=== PATIENT | female | born 1990 | race Caucasian/White ===

== ENCOUNTER 2020-02-04 09:42 | Emergency (ER) | payer SELFPAY ==
--- NOTE | 2020-02-04 10:09 | ED.URI ---
HPI - URI/Sore Throat General Chief Complaint: Upper Respiratory Symptoms Stated Complaint: FEVER VOMITING Time Seen by Provider: 02/04/20 09:45 Source: patient Mode of arrival: ambulatory Limitations: no limitations History of Present Illness HPI Narrative: 29yoF presenting to the ED c c/o Subjective fevers, chills, body aches, intermittent headaches, nausea/vomiting, loss of taste, nasal congestion, intermittent productive cough, diarrhea since yesterday. Denies recent travel or sick contacts. Works at [employer]. Denies any other symptoms complaints or concerns at this time. Related Data Allergies Allergy/AdvReac Type Severity Reaction Status Date / Time aspirin [ASA] Allergy Unknown HIVES Unverified 12/23/19 19:19 Review of Systems Review of Systems: Constitutional : + Fever, + Chills, No fatigue, No Malaise ENT/Mouth : No sore throat, + runny nose, + Loss of taste, No loss of smell Eyes: No Discharge Cardiovascular : No Chest Pain, No SOB Respiratory : + Cough, + Sputum, No Wheezing, No Smoke Exposure, No Dyspnea Gastrointestinal : + Nausea, + Vomiting, + Diarrhea Genitourinary : No irregular bleeding, No Dysuria, No Urinary Frequency, No Hematuria, No Urinary Incontinence, No Urgency, No Flank Pain, Musculoskeletal : No Myalgia Skin : No rash Neuro : + Headache Yes all other systems are reviewed and are negative [facility] Past Medical History Attestation statement: The following information was validated with the patient. Social History Social History Advance Directives: No Advance Directives Information Provided: No Physical Exam Vital Signs: Vital Signs: vital signs have been reviewed as normal and appeared to be correct. Blood pressure normal. Heart rate normal. Respiration rate normal. Temperature normal. Oxygen saturation normal. Appearance: Alert. Oriented X3. No acute distress. Head: Normal external exam. Normocephalic. Atraumatic. No Argueta signs noted. No raccoon eyes noted Eyes: PERRLA. EOMI. Conjunctiva and sclera normal. Eyelids normal. ENT: EAC normal. TM's Normal. Pharynx normal. Uvula midline. Moist mucous membranes. No trismus noted. No drooling noted. No muffled voice noted. Neck: Normal inspection. Neck supple. FROM. No adenopathy. Thyroid Normal. No meningeal signs. No neck mass noted. CVS: Normal heart rate and rhythm. Heart sound normal. No murmurs noted. Pulses normal throughout. Respiratory: No respiratory distress. Painless inspiration. Breath sounds normal. No wheezes/rales/rhonchi noted. Chest nontender. No accessory muscle usage noted or decreased air movement noted. Abdomen: Soft and nontender. Bowel sounds normal in all 4 quadrants. No distention noted. No organomegaly noted. No visible injury noted. Back: No CVA tenderness. Full range of motion noted. Skin: Skin warm and dry. Normal skin color. Normal skin turgor. No rashes/lesions/lacerations noted. Extremities: No lower extremity edema. Extremities exhibit normal range of motion. Extremities nontender. Neuro: Oriented X 3. No motor deficit. No sensory deficit. Reflexes normal. Course Course Course Narrative: Will test for COVID in [place] home with symptomatic treatment instructions to return if any new or worsening symptoms and to self isolate and to follow up her primary care provider. Patient understands agrees the plan.
[2020-02-04 10:13] VITALS: BP 110/72; PULSE 92; TEMP 36.6; O2SAT 99; BMI 32.1
== END 2020-02-04 10:54 | disposition home or self-care (01) ==
PROVIDERS: Physician Assistant Medical; Emergency Provider Emergency Medicine
DX: R50.9 Fever, unspecified (principal); M79.10 Myalgia, unspecified site; Z20.828 Contact with and (suspected) exposure to other viral communicable diseases
CPT/HCPCS: 99283; U0003

== ENCOUNTER 2020-03-13 17:57 | Emergency (ER) | payer SELFPAY ==
[2020-03-13 18:04] VITALS: BP 124/77; PULSE 100; RESP 16; TEMP 36.9; O2SAT 100; BMI 34.9
[2020-03-13 18:19] LABS: Glucose Urine UA NEG (NEG); Leukocyte Esterase Urine 1+ (NEG); Nitrite Urine POS (NEG); PH 6.5 (5.0-8.0); Specific Gravity - Urine 1.015 (1.005-1.025); Urine Blood 3+ (NEG); Urine Ketones NEG (NEG); Urine Protein 1+ MG/DL (NEG-TRACE)
[2020-03-13 18:20] LABS: Appearance Urine CLOUDY; Color Urine YELLOW
[2020-03-13 18:21] LABS: UPreg QC Valid YES; Urine Pregnancy NEGATIVE (NEGATIVE)
[2020-03-13 18:26] LABS: Bacteria Urine 2+ /LPF; RBC Urine 30-49 /HPF (0); Squamous Epithelial Cell Urine 1+ /LPF
--- NOTE | 2020-03-13 20:25 | CT_ITS ---
EXAMINATION: CT ABDOMEN AND PELVIS WITHOUT CONTRAST CLINICAL INFORMATION: Left flank pain. Dysuria. COMPARISON: CT abdomen pelvis 01/18/2019 TECHNIQUE: Multidetector volumetric imaging was performed from the superior aspect of the liver through the pubic symphysis. Sagittal and coronal reformatted images were obtained on the technologist's workstation. This CT examination was performed using dose optimization techniques as appropriate, variously including the following: *Automated exposure control *Adjustment of mA and/or kV according to patient size (this includes techniques or standardized protocols for targeted exams where dose is matched to indication/reason for exam; i.e. extremities or head) *Use of iterative reconstruction technique DLP: 683 mGy-cm FINDINGS: Visualized lung bases demonstrate mild dependent atelectasis. Stable 3 mm pulmonary nodule within the anterior right lung base. The liver demonstrates normal size, contour and attenuation. The gallbladder is decompressed but unremarkable. The pancreas, spleen and adrenal glands are unremarkable. The kidneys are symmetric in size. No renal calculi or hydronephrosis bilaterally. Debris-filled stomach. Normal caliber loops of small and large bowel. The appendix is surgically absent. The bladder is decompressed and therefore not accurately evaluated. Unremarkable CT appearance of the uterus. Small bilateral adnexal cysts are present. Trace amount of free pelvic fluid is likely physiologic. No inguinal lymphadenopathy. No acute osseous abnormality. CT/CT abdomen pelvis wo con IMPRESSION: No CT evidence for acute abnormality within the abdomen or pelvis. Specifically, no renal calculi or hydronephrosis bilaterally.
--- NOTE | 2020-03-13 20:25 | ED.ABDPAIN ---
HPI - Abdominal Pain General Chief Complaint: Abdominal Pain Stated Complaint: Flank Pain Time Seen by Provider: 03/13/20 20:13 Source: patient Mode of arrival: ambulatory Limitations: no limitations History of Present Illness HPI narrative: 29-year-old female with no significant past medical history presents with abdominal pain and left flank pain for the past several days Accompanied with subjective fevers and chills. States the pain is getting worse, and she is having difficulty urinating. She notices that her urine is dark appears to have blood in it. she is not sexually active at this time, denies chest pain pressure, palpitations, shortness of breath, abdominal distention, edema, dizziness and weakness. MD elicited complaint: abdominal pain Pertinent past history: none Onset (ago): day(s) Pain Consistency: constant Location: LLQ, L flank and suprapubic Severity: moderate Quality: aching and burning Radiation: none Migration to: no migration Exacerbating factors: other ( micturition) Relieving factors: nothing Associated symptoms: nausea, fever, chills, dysuria and hematuria Treatments prior to arrival: NSAIDs Related Data Previous Rx's Medication Instructions Recorded acetaminophen [Tylenol] 650 mg PO Q6H PRN #10 tab 02/04/20 azithromycin See Rx Instructions .ROUTE 02/04/20 .COMPLEX #6 tab cyclobenzaprine 10 mg PO TID PRN #10 tab 02/04/20 ondansetron HCl [Zofran] 4 mg PO Q6H PRN #10 tab 02/04/20 cephalexin [Keflex] 500 mg PO Q8H 7 Days #21 cap 03/13/20 phenazopyridine [Pyridium] 200 mg PO TID PRN #10 tab 03/13/20 Allergies Allergy/AdvReac Type Severity Reaction Status Date / Time aspirin [ASA] Allergy Unknown HIVES Unverified 12/23/19 19:19 Review of Systems Review of Systems Constitutional: subjective Fever, positive Chills ENT/Mouth: No sore throat Eyes: No Eye Pain, No Swelling, No Redness Cardiovascular: No Chest Pain, No SOB Respiratory: No Cough, No Sputum, No Wheezing Gastrointestinal: positive Nausea, no Vomiting, No Diarrhea, positive abdominal pain Genitourinary: positive Dysuria, positive urinary frequency, positive Hematuria, positive Flank Pain, positive hesitancy Musculoskeletal: No joint pain, No Myalgias Skin: No Skin Lesions, No rash Neuro: No Weakness, No Numbness, No Headache Psych: No Anxiety/Panic, No Depression Heme/Lymph: No Bruising, No Lymphadenopathy Endocrine: No Polyuria, No Polydipsia Yes all other systems are reviewed and are negative Physical Exam Vital Signs: Vital Signs: Last Vital Signs Temp 98.0 F 03/13/20 22:16 Pulse 83 03/13/20 22:16 Resp 16 03/13/20 22:16 BP 114/72 03/13/20 22:16 Pulse Ox 98 03/13/20 22:16 Body Mass Index 34.9 Appearance: Alert. Oriented X3. moderate distress. Eyes: Pupils equal, round and reactive to light. ENT: Pharynx normal. Neck: Normal inspection. Neck supple. CVS: Normal heart rate and rhythm. Pulses normal. Respiratory: No respiratory distress. Breath sounds normal. Abdomen: Soft and tender to left lower and suprapubic, positive CVA tenderness Skin: Skin warm and dry. Normal skin color. Normal skin turgor. Extremities: No lower extremity edema. Neuro: No motor deficit. No sensory deficit. Course Course Course Narrative: 29-year-old female with no significant past medical history presents with left flank and suprapubic pain. Physical exam shows tenderness to the left lower quadrant and CVA tenderness. She does have family history of kidney stones but has never had 1 herself. urine positive for bacteria, heme and nitrites. Initial vital signs have a heart rate of 100, we will follow SIRS criteria resuscitate with 1 L of fluid at this time and order CT scan of the abdomen and pelvis, lactic and cultures. CBC shows a white count of 12.8, no other indication of organ dysfunction. CT scan is negative for acute findings requiring emergent intervention. Patient lost IV access, was unable to receive the IV ceftriaxone, plan is to give p.o. Keflex. We will discharge the patient home with Keflex and Pyridium. Patient verbalized understanding of and agrees to plan of care to discharge home. MDM - Abdominal Pain Differential Diagnosis Differential diagnosis: Likely abdominal pain, calculus of kidney, diverticulitis, endometriosis, ovarian cyst and renal colic Differential diagnosis narrative:: UTI Medical Records Attestation: I reviewed the patient's medical records. Lab Data Attestation: I reviewed the patient's lab results. Result diagrams: 03/13/20 20:54 12/07/20 21:41 Labs: Lab Results 03/13/20 03/13/20 03/13/20 Range/Units 18:12 20:54 20:54 WBC 12.8 H (4.8-10.8) X10*3/uL RBC 4.40 (4.20-5.50) X10*6/uL Hgb 13.0 (12.0-16.0) g/dl Hct 38.3 (37-47) % MCV 87.0 (80-98) fL MCH 29.5 (27.0-33.0) pg MCHC 33.9 (31.0-35.0) g/dl RDW 12.4 (11.0-16.0) % Plt Count 427 H (160-400) X10*3/uL MPV 9.6 (9.4-12.3) fL Immature Gran % (Auto) 0.4 (0.0-0.4) % Neut % (Auto) 54.8 (45-73) % Lymph % (Auto) 36.1 (20-40) % [place] % (Auto) 5.5 (2-11) % Eos % (Auto) 2.4 (0-4) % Baso % (Auto) 0.8 (0-2) % Lymph # (Auto) 4.6 (1.2-4.9) X10*3/uL [place] # (Auto) 0.7 (0.1-1.2) X10*3/uL Eos # (Auto) 0.3 (0.0-0.4) X10*3/uL Baso # (Auto) 0.1 (0.0-0.2) X10*3/uL Abs Immat Gran (auto) 0.05 H (0.00-0.03) X10*3/uL Absolute Neuts (auto) 7.0 (2.0-8.3) X10*3/uL Absolute Nucleated RBC 0.000 (0.0-0.012) X10*3/uL Nucleated RBC % (auto) 0.0 (0.0-0.2) /100WBC Sodium Cancelled Potassium Cancelled Chloride Cancelled Carbon Dioxide Cancelled Anion Gap Cancelled BUN Cancelled Creatinine Cancelled Estim Creat Clear Calc Cancelled Estimated GFR Cancelled Random Glucose Cancelled Lactic Acid (0.5-2.0) mmol/L Calcium Cancelled Urine Color YELLOW Urine Appearance CLOUDY Urine pH 6.5 (5.0-8.0) Ur Specific [place] 1.015 (1.005-1.025) Urine Protein 1+ H (NEG-TRACE) MG/DL Urine Glucose (UA) NEG (NEG) MG/DL Urine Ketones NEG (NEG) MG/DL Urine Blood 3+ H (NEG) Urine Nitrite POS H (NEG) Ur Leukocyte Esterase 1+ H (NEG) Urine RBC 30-49 H (0) /HPF Urine WBC 1-4 (0-4) /HPF Ur Squamous Epith Cells 1+ /LPF Urine Bacteria 2+ /LPF Urine Test NEGATIVE (NEGATIVE) 03/13/20 03/13/20 Range/Units 20:54 21:41 WBC (4.8-10.8) X10*3/uL RBC (4.20-5.50) X10*6/uL Hgb (12.0-16.0) g/dl Hct (37-47) % MCV (80-98) fL MCH (27.0-33.0) pg MCHC (31.0-35.0) g/dl RDW (11.0-16.0) % Plt Count (160-400) X10*3/uL MPV (9.4-12.3) fL Immature Gran % (Auto) (0.0-0.4) % Neut % (Auto) (45-73) % Lymph % (Auto) (20-40) % [place] % (Auto) (2-11) % Eos % (Auto) (0-4) % Baso % (Auto) (0-2) % Lymph # (Auto) (1.2-4.9) X10*3/uL [place] # (Auto) (0.1-1.2) X10*3/uL Eos # (Auto) (0.0-0.4) X10*3/uL Baso # (Auto) (0.0-0.2) X10*3/uL Abs Immat Gran (auto) (0.00-0.03) X10*3/uL Absolute Neuts (auto) (2.0-8.3) X10*3/uL Absolute Nucleated RBC (0.0-0.012) X10*3/uL Nucleated RBC % (auto) (0.0-0.2) /100WBC Sodium 136 Potassium 3.6 Chloride 104 Carbon Dioxide 24 Anion Gap 12 BUN 12 Creatinine 0.68 Estim Creat Clear Calc 116.2 Estimated GFR > 60 Random Glucose 93 Lactic Acid 1.3 (0.5-2.0) mmol/L Calcium 8.8 Urine Color Urine Appearance Urine pH (5.0-8.0) Ur Specific [place] (1.005-1.025) Urine Protein (NEG-TRACE) MG/DL Urine Glucose (UA) (NEG) MG/DL Urine Ketones (NEG) MG/DL Urine Blood (NEG) Urine Nitrite (NEG) Ur Leukocyte Esterase (NEG) Urine RBC (0) /HPF Urine WBC (0-4) /HPF Ur Squamous Epith Cells /LPF Urine Bacteria /LPF Urine Test (NEGATIVE) Imaging Data CT scan - abdomen: Attestation: I personally reviewed and interpreted this imaging study as follows: Radiologist's impression: FINDINGS: Visualized lung bases demonstrate mild dependent atelectasis. Stable 3 mm pulmonary nodule within the anterior right lung base. The liver demonstrates normal size, contour and attenuation. The gallbladder is decompressed but unremarkable. The pancreas, spleen and adrenal glands are unremarkable. The kidneys are symmetric in size. No renal calculi or hydronephrosis bilaterally. Debris-filled stomach. Normal caliber loops of small and large bowel. The appendix is surgically absent. The bladder is decompressed and therefore not accurately evaluated. Unremarkable CT appearance of the uterus. Small bilateral adnexal cysts are present. Trace amount of free pelvic fluid is likely physiologic. No inguinal lymphadenopathy. No acute osseous abnormality. CT/CT abdomen pelvis wo con IMPRESSION: No CT evidence for acute abnormality within the abdomen or pelvis. Specifically, no renal calculi or hydronephrosis bilaterally. Discharge Plan Discharge Clinical Impression: UTI (urinary tract infection) Patient Disposition: Home, Self-Care Instructions: Urinary Tract Infection in Women (ED) Additional Instructions: you were above evaluated for abdominal and flank pain. Urinalysis indicates urinary tract infection. CT scan is negative for acute findings requiring emergent intervention. We prescribed Keflex. Please take this medication as directed and complete the entire course. This medication is an antibiotic. Please follow-up with primary care physician for repeat urinalysis once the Keflex has been completed to ensure that you no longer have blood in your urine. Thank you for choosing this emergency department for evaluation. Please follow-up with primary care physician as needed. Return to the emergency department for any new, concerning, or worsening symptoms. Prescriptions: New cephalexin [Keflex] 500 mg capsule 500 mg PO Q8H 7 Days Qty: 21 RF: 0 phenazopyridine [Pyridium] 200 mg tablet 200 mg PO TID PRN (Reason: pain) Qty: 10 RF: 0 No Action cyclobenzaprine 10 mg tablet 10 mg PO TID PRN (Reason: muscle spasm) Qty: 10 RF: 0 azithromycin 250 mg tablet See Rx Instructions .ROUTE .COMPLEX Qty: 6 RF: 0 acetaminophen [Tylenol] 325 mg tablet 650 mg PO Q6H PRN (Reason: fever or pain) Qty: 10 RF: 0 ondansetron HCl [Zofran] 4 mg tablet 4 mg PO Q6H PRN (Reason: nausea and vomiting) Qty: 10 RF: 0 Interventions: ED Discharge Assessment Last Done: 03/13/20 22:32 Discharge Date/Time: 03/13/20 22:34 [facility] Past Medical History Attestation statement: The following information was validated with the patient. Medical History No known health problems Surgical History History of appendectomy Social History Social History Alcohol intake: never Smoked in Last 30 Days: No Use of substances other than those prescribed or required for medical reasons: No Advance Directives: No Advance Directives Information Provided: Yes
--- NOTE | 2020-03-13 21:00 | PC.NURSE ---
PT EVALED . IV STARTED. LABS DRAWN. CT TAKEN. PT DENIES ANY ABD PAIN WHEN QUESTIONED. PAINFUL URINATION X 3 DAYS. WAITING RESULTS.
[2020-03-13 21:02] LABS: Basophils Absolute Auto 0.1 X10*3/uL (0.0-0.2); Basophils Percent Auto 0.8 % (0-2); Eosinophils Absolute Auto 0.3 X10*3/uL (0.0-0.4); Eosinophils Percent Auto 2.4 % (0-4); Hematocrit 38.3 % (37-47); Imm Gran Abs Auto 0.05 X10*3/uL (0.00-0.03); Imm Gran Pct Auto 0.4 % (0.0-0.4); Lymphocytes Absolute Auto 4.6 X10*3/uL (1.2-4.9); Lymphocytes Percent Auto 36.1 % (20-40); MANUAL DIFF FLAG NO; Mean Corpuscular HGB Conc 33.9 g/dl (31.0-35.0); Mean Corpuscular Hemoglobin 29.5 pg (27.0-33.0); Mean Platelet Volume 9.6 fL (9.4-12.3); Monocytes Absolute Auto 0.7 X10*3/uL (0.1-1.2); Monocytes Percent Auto 5.5 % (2-11); Neutrophils Percent Auto 54.8 % (45-73); Platelet Count 427 X10*3/uL (160-400); Red Cell Distribution Width 12.4 % (11.0-16.0); White Blood Count 12.8 X10*3/uL (4.8-10.8)
[2020-03-13 21:34] LABS: Lactic Acid 1.3 mmol/L (0.5-2.0)
[2020-03-13 22:16] VITALS: BP 114/72; PULSE 83; RESP 16; TEMP 36.7; O2SAT 98
[2020-03-13 22:18] LABS: Anion Gap 12 (12-20); Blood Urea Nitrogen 12 mg/dL (9-16); Calcium 8.8 mg/dL (8.4-10.2); Carbon Dioxide 24 mmol/L (22-29); Chloride 104 mmol/L (96-108); Creatinine Clr Calc Pharmacy 116.2; Estimated Glomerular Filt Rate > 60; Glucose Random 93 mg/dL (60-115); Potassium 3.6 mmol/l (3.3-5.1); Sodium 136 mmol/L (135-145)
[2020-03-13] MEDS: cephALEXin 500 MG CAPSULE PO (22:25)
== END 2020-03-13 22:34 | disposition home or self-care (01) ==
PROVIDERS: Nurse Practitioner Family; Emergency Provider Emergency Medicine
DX: N39.0 Urinary tract infection, site not specified (principal)
CPT/HCPCS: 36415; 74176; 80048; 81001; 81025; 83605; 85025; 87040; 87086; 87088; 87186; 96361; 96374; 99284

== ENCOUNTER 2020-04-06 15:10 | Emergency (ER) | payer SELFPAY ==
[2020-04-06 15:13] VITALS: BP 132/71; PULSE 89; RESP 16; TEMP 36.2; O2SAT 100; BMI 33.0
[2020-04-06 15:56] LABS: Glucose Urine UA NEG (NEG); Leukocyte Esterase Urine NEG (NEG); Nitrite Urine NEG (NEG); Specific Gravity - Urine >= 1.030 (1.005-1.025); Urine Blood 1+ (NEG); Urine Ketones NEG (NEG); Urine Protein NEG (NEG-TRACE)
[2020-04-06 15:57] LABS: Appearance Urine CLEAR; Color Urine YELLOW
[2020-04-06 15:58] LABS: UPreg QC Valid YES; Urine Pregnancy POSITIVE (NEGATIVE)
[2020-04-06 16:18] LABS: Squamous Epithelial Cell Urine 3+ /LPF; WBC Urine 0 /HPF (0-4)
--- NOTE | 2020-04-06 16:21 | US_ITS ---
EXAMINATION: ULTRASOUND OB TRANSVAGINAL CLINICAL INFORMATION: Cramping. COMPARISON: None TECHNIQUE: Transabdominal and transvaginal ultrasound the pelvis was performed FINDINGS: The uterus is anteverted reported with a small gestational sac visualized. There is no yolk sac, pole or motion. The mean sac diameter is 0.91 cm corresponding to 5 weeks and 4 days. The right ovary measures 3.6 x 2.1 x 2.2 cm and appears unremarkable. Small follicles are seen. Left ovary measures 5.7 x 4.8 x 4.5 cm. There is a complex cyst with septations measuring 3.9 x 3.7 x 3.7 cm, likely corpus luteal cyst. The second cyst on the other side of the complex cyst by septation measures 1.5 x 2.5 x 1.40 cm. There is no free fluid seen. US/US OB <= 14 weeks fetus IMPRESSION: There is a single intrauterine gestational sac without pole, yolk sac or motion corresponding to 5 weeks and 4 days. Recommend follow-up ultrasound in 2-3 weeks. Complex cyst and simple adjacent cyst in left ovary. There is no free fluid in the cul-de-sac.
--- NOTE | 2020-04-06 16:21 | US_ITS ---
EXAMINATION: ULTRASOUND OB TRANSVAGINAL CLINICAL INFORMATION: Cramping. COMPARISON: None TECHNIQUE: Transabdominal and transvaginal ultrasound the pelvis was performed FINDINGS: The uterus is anteverted reported with a small gestational sac visualized. There is no yolk sac, pole or motion. The mean sac diameter is 0.91 cm corresponding to 5 weeks and 4 days. The right ovary measures 3.6 x 2.1 x 2.2 cm and appears unremarkable. Small follicles are seen. Left ovary measures 5.7 x 4.8 x 4.5 cm. There is a complex cyst with septations measuring 3.9 x 3.7 x 3.7 cm, likely corpus luteal cyst. The second cyst on the other side of the complex cyst by septation measures 1.5 x 2.5 x 1.40 cm. There is no free fluid seen. US/US OB transvaginal IMPRESSION: There is a single intrauterine gestational sac without pole, yolk sac or motion corresponding to 5 weeks and 4 days. Recommend follow-up ultrasound in 2-3 weeks. Complex cyst and simple adjacent cyst in left ovary. There is no free fluid in the cul-de-sac.
--- NOTE | 2020-04-06 16:25 | ED_ITS ---
HPI - Abdominal Pain General Chief Complaint: Abdominal Pain Stated Complaint: lighheaded,nause,abd pain Time Seen by Provider: 04/06/20 16:16 Source: patient Mode of arrival: ambulatory Limitations: no limitations History of Present Illness HPI narrative: 29-year-old female previously healthy here with feeling nauseous, lower pelvic cramping and feeling lightheaded with position changes for the last few days. She tells me she is 1 week late for her menses. Her last menstrual cycle was 1126. She has never been before. She denies any vaginal bleeding, discharge, vomiting. She is seeking MD elicited complaint: abdominal pain (Pelvic cramping) Onset (ago): day(s) Pain Consistency: intermittent Location: pelvis Severity: mild Radiation: none Migration to: no migration Exacerbating factors: nothing Relieving factors: nothing Associated symptoms: nausea Related Data Previous Rx's Medication Instructions Recorded acetaminophen [Tylenol] 650 mg PO Q6H PRN #10 tab 02/04/20 azithromycin See Rx Instructions .ROUTE 02/04/20 .COMPLEX #6 tab cyclobenzaprine 10 mg PO TID PRN #10 tab 02/04/20 ondansetron HCl [Zofran] 4 mg PO Q6H PRN #10 tab 02/04/20 cephalexin [Keflex] 500 mg PO Q8H 7 Days #21 cap 03/13/20 phenazopyridine [Pyridium] 200 mg PO TID PRN #10 tab 03/13/20 prenat.vits,faiza,vlb-rzgh-zuzms 1 tab PO DAILY #30 tab NS 04/06/20 Allergies Allergy/AdvReac Type Severity Reaction Status Date / Time aspirin [ASA] Allergy Unknown HIVES Verified 04/06/20 15:17 Review of Systems Review of Systems Yes all other systems are reviewed and are negative Constitutional: Reports no additional constitutional complaints, Denies body ache(s), Denies chills, Denies fever(s), Denies headache(s) and Denies weakness Eyes: Reports no additional eye complaints and Denies change in vision Reports system reviewed and no additional complaints, except as documented, Reports dizziness, Denies headache(s), Denies nasal congestion, Denies nasal discharge and Denies neck pain Cardiovascular: Reports no additional cardiovascular complaints, Denies chest pain, Denies leg edema and Denies dyspnea Respiratory: Reports no additional respiratory complaints, Denies cough and Denies dyspnea Gastrointestinal: Reports no additional gastrointestinal complaints, Denies abdominal pain, Denies diarrhea, Reports nausea and Denies vomiting Genitourinary: Reports no additional female genitourinary complaints and Denies urinary incontinence Comments: Pelvic pain Musculoskeletal: Reports no additional musculoskeletal complaints, Denies back pain, Denies arthralgias, Denies joint swelling, Denies neck pain, Denies numbness and Denies tingling Skin/Breast: Reports system reviewed and no additional complaints, except as docu and Denies rash Reports system reviewed and no additional complaints, except as documented, Denies Abnormal speech present, Reports dizziness, Denies headache(s), Denies numbness, Denies tingling and Denies weakness Physical Exam Vital Signs: Vital Signs: Last Vital Signs Temp 98.3 F 04/06/20 16:50 Pulse 86 04/06/20 16:50 Resp 18 04/06/20 16:50 BP 123/74 04/06/20 16:50 Pulse Ox 100 04/06/20 16:50 Body Mass Index 33.0 Const: General: cooperative, healthy appearing, comfortable and no acute distress Orientation/consciousness: patient oriented x3 Limitations: no limitations HENMT: Head: Yes normal to inspection Ears: hearing grossly normal bilaterally General nose exam: Normal external nose present Face and sinus: Yes normal facial exam Mouth: Normal oral and palatal mucosa present Throat: Yes posterior oropharynx normal Eyes: General: appearance normal, both eyes and all related structures Pupils: Equal, round and reactive pupils present Neck: Neck: Yes normal visual inspection Chest: Chest palpation & inspection: normal inspection of the chest Resp: Effort & Inspection: normal respiratory effort Auscultation: clear to auscultation bilaterally Cardio: Rate: regular rate Rhythm: regular rhythm Peripheral pulses: Peripheral pulses 2+ throughout GI: Inspection: Yes normal to inspection Palpation (GI): Soft to palpation, Tenderness to palpation present (GI) (Mild bilateral lower pelvic discomfort on exam.) with no rebound tenderness and no guarding Auscultation: normal bowel sounds Back/Spine/Pelvis: Thoracic/Lumbar Spine: thoracic and lumbar spine normal to inspection Skin: General skin exam: no rashes or lesions noted Neuro: General: patient oriented x3, no focal motor deficits and normal sensation to monofilament Cranial nerves: Yes Equal, round and reactive pupils present Cognition (Neuro): normal cognition Speech: No Abnormal speech present Gait exam (Neuro): Normal gait present Motor exam (neuro): 5/5 motor strength present throughout Extrem: General: Yes normal to inspection Course Course Course Narrative: 29-year-old female here with complaints of feeling lightheaded, nausea and late menses with bilateral lower cramping. Urine positive here. UA unremarkable. Will need labs including beta quant, Rh, ultrasound. 1814-ultrasound shows a single intrauterine gestational sac without pole, yolk sac or motion corresponding to 5 weeks and 4/7 days. Likely too early gestation. No vaginal bleeding with sufficient quant. Discussed findings with the patient. She was given a copy of her ultrasound report. Recommended following up outpatient with OB. Reviewed worrisome signs and symptoms and when to return to the emergency department. Comfortable discharge home. MDM - Abdominal Pain Medical Records Attestation: I reviewed the patient's medical records. Lab Data Attestation: I reviewed the patient's lab results. Result diagrams: 04/06/20 17:02 04/06/20 17:02 Labs: Lab Results 04/06/20 04/06/20 04/06/20 Range/Units 15:48 15:48 17:02 WBC 10.6 (4.8-10.8) X10*3/uL RBC 3.90 L (4.20-5.50) X10*6/uL Hgb 11.4 L (12.0-16.0) g/dl Hct 34.3 L (37-47) % MCV 87.9 (80-98) fL MCH 29.2 (27.0-33.0) pg MCHC 33.2 (31.0-35.0) g/dl RDW 13.2 (11.0-16.0) % Plt Count 323 (160-400) X10*3/uL MPV 9.3 L (9.4-12.3) fL Immature Gran % (Auto) 0.5 H (0.0-0.4) % Neut % (Auto) 53.5 (45-73) % Lymph % (Auto) 38.3 (20-40) % [place] % (Auto) 5.3 (2-11) % Eos % (Auto) 1.7 (0-4) % Baso % (Auto) 0.7 (0-2) % Lymph # (Auto) 4.1 (1.2-4.9) X10*3/uL [place] # (Auto) 0.6 (0.1-1.2) X10*3/uL Eos # (Auto) 0.2 (0.0-0.4) X10*3/uL Baso # (Auto) 0.1 (0.0-0.2) X10*3/uL Abs Immat Gran (auto) 0.05 H (0.00-0.03) X10*3/uL Absolute Neuts (auto) 5.7 (2.0-8.3) X10*3/uL Absolute Nucleated RBC 0.000 (0.0-0.012) X10*3/uL Nucleated RBC % (auto) 0.0 (0.0-0.2) /100WBC Sodium (135-145) mmol/L Potassium (3.3-5.1) mmol/l Chloride (96-108) mmol/L Carbon Dioxide (22-29) mmol/L Anion Gap (12-20) BUN (9-16) mg/dL Creatinine (0.5-1.4) mg/dL Estim Creat Clear Calc Estimated GFR Random Glucose (60-115) mg/dL Calcium (8.4-10.2) mg/dL Beta HCG, Quant mIU/mL Urine Color YELLOW Urine Appearance CLEAR Urine pH 6.0 (5.0-8.0) Ur Specific [place] >= 1.030 H (1.005-1.025) Urine Protein NEG (NEG-TRACE) MG/DL Urine Glucose (UA) NEG (NEG) MG/DL Urine Ketones NEG (NEG) MG/DL Urine Blood 1+ H (NEG) Urine Nitrite NEG (NEG) Ur Leukocyte Esterase NEG (NEG) Urine RBC 1-4 (0) /HPF Urine WBC 0 (0-4) /HPF Ur Squamous Epith Cells 3+ /LPF Urine Bacteria NONE /LPF Urine Test POSITIVE H (NEGATIVE) Blood Type 04/06/20 04/06/20 Range/Units 17:02 17:02 WBC (4.8-10.8) X10*3/uL RBC (4.20-5.50) X10*6/uL Hgb (12.0-16.0) g/dl Hct (37-47) % MCV (80-98) fL MCH (27.0-33.0) pg MCHC (31.0-35.0) g/dl RDW (11.0-16.0) % Plt Count (160-400) X10*3/uL MPV (9.4-12.3) fL Immature Gran % (Auto) (0.0-0.4) % Neut % (Auto) (45-73) % Lymph % (Auto) (20-40) % [place] % (Auto) (2-11) % Eos % (Auto) (0-4) % Baso % (Auto) (0-2) % Lymph # (Auto) (1.2-4.9) X10*3/uL [place] # (Auto) (0.1-1.2) X10*3/uL Eos # (Auto) (0.0-0.4) X10*3/uL Baso # (Auto) (0.0-0.2) X10*3/uL Abs Immat Gran (auto) (0.00-0.03) X10*3/uL Absolute Neuts (auto) (2.0-8.3) X10*3/uL Absolute Nucleated RBC (0.0-0.012) X10*3/uL Nucleated RBC % (auto) (0.0-0.2) /100WBC Sodium 136 (135-145) mmol/L Potassium 3.6 (3.3-5.1) mmol/l Chloride 106 (96-108) mmol/L Carbon Dioxide 24 (22-29) mmol/L Anion Gap 10 L (12-20) BUN 7 L (9-16) mg/dL Creatinine 0.62 (0.5-1.4) mg/dL Estim Creat Clear Calc 123.6 Estimated GFR > 60 Random Glucose 95 (60-115) mg/dL Calcium 8.1 L D (8.4-10.2) mg/dL Beta HCG, Quant 9486 mIU/mL Urine Color Urine Appearance Urine pH (5.0-8.0) Ur Specific [place] (1.005-1.025) Urine Protein (NEG-TRACE) MG/DL Urine Glucose (UA) (NEG) MG/DL Urine Ketones (NEG) MG/DL Urine Blood (NEG) Urine Nitrite (NEG) Ur Leukocyte Esterase (NEG) Urine RBC (0) /HPF Urine WBC (0-4) /HPF Ur Squamous Epith Cells /LPF Urine Bacteria /LPF Urine Test (NEGATIVE) Blood Type A Positive Imaging Data pelvic US: Attestation: I personally reviewed and interpreted this imaging study as follows: Radiologist's impression: EXAMINATION: ULTRASOUND OB TRANSVAGINAL CLINICAL INFORMATION: Cramping. COMPARISON: None TECHNIQUE: Transabdominal and transvaginal ultrasound the pelvis was performed FINDINGS: The uterus is anteverted reported with a small gestational sac visualized. There is no yolk sac, pole or motion. The mean sac diameter is 0.91 cm corresponding to 5 weeks and 4 days. The right ovary measures 3.6 x 2.1 x 2.2 cm and appears unremarkable. Small follicles are seen. Left ovary measures 5.7 x 4.8 x 4.5 cm. There is a complex cyst with septations measuring 3.9 x 3.7 x 3.7 cm, likely corpus luteal cyst. The second cyst on the other side of the complex cyst by septation measures 1.5 x 2.5 x 1.40 cm. There is no free fluid seen. US/US OB <= 14 weeks fetus IMPRESSION: There is a single intrauterine gestational sac without pole, yolk sac or motion corresponding to 5 weeks and 4 days. Recommend follow-up ultrasound in 2-3 weeks. Complex cyst and simple adjacent cyst in left ovary. There is no free fluid in the cul-de-sac. Discharge Plan Discharge Clinical Impression: Qualifiers: Weeks of gestation: less than 8 weeks Qualified Code(s): Z3A.01 - Less than 8 weeks gestation of Patient Disposition: Home, Self-Care Instructions: First Trimester (ED) Additional Instructions: Your ultrasound does confirm a but is too soon to see all the parts of the fetus. Follow-up with an OB doctor Tylenol only for pain Keep crackers by the bedside and eat before getting out of bed as this will help with nausea Prescriptions: New prenat.vits,faiza,clt-rbir-iakky Tablet 1 tab PO DAILY Qty: 30 RF: 0 No Action cyclobenzaprine 10 mg tablet 10 mg PO TID PRN (Reason: muscle spasm) Qty: 10 RF: 0 azithromycin 250 mg tablet See Rx Instructions .ROUTE .COMPLEX Qty: 6 RF: 0 acetaminophen [Tylenol] 325 mg tablet 650 mg PO Q6H PRN (Reason: fever or pain) Qty: 10 RF: 0 ondansetron HCl [Zofran] 4 mg tablet 4 mg PO Q6H PRN (Reason: nausea and vomiting) Qty: 10 RF: 0 cephalexin [Keflex] 500 mg capsule 500 mg PO Q8H 7 Days Qty: 21 RF: 0 phenazopyridine [Pyridium] 200 mg tablet 200 mg PO TID PRN (Reason: pain) Qty: 10 RF: 0 Referrals: Jerrica Lynne MD [Physician] - 2 days [facility] Past Medical History Attestation statement: The following information was validated with the patient. Source: old records reviewed and nursing notes reviewed Medical History No known health problems Surgical History History of appendectomy Social History Social History Alcohol intake: never Smoking Status: Never smoker Use of substances other than those prescribed or required for medical reasons: No Advance Directives: No Advance Directives Information Provided: No
[2020-04-06 16:50] VITALS: BP 123/74; PULSE 86; RESP 18; TEMP 36.8; O2SAT 100
[2020-04-06 17:09] LABS: Basophils Absolute Auto 0.1 X10*3/uL (0.0-0.2); Basophils Percent Auto 0.7 % (0-2); Eosinophils Absolute Auto 0.2 X10*3/uL (0.0-0.4); Eosinophils Percent Auto 1.7 % (0-4); Hematocrit 34.3 % (37-47); Hemoglobin 11.4 g/dl (12.0-16.0); Imm Gran Abs Auto 0.05 X10*3/uL (0.00-0.03); Imm Gran Pct Auto 0.5 % (0.0-0.4); Lymphocytes Absolute Auto 4.1 X10*3/uL (1.2-4.9); Lymphocytes Percent Auto 38.3 % (20-40); MANUAL DIFF FLAG NO; Mean Corpuscular HGB Conc 33.2 g/dl (31.0-35.0); Mean Corpuscular Hemoglobin 29.2 pg (27.0-33.0); Mean Corpuscular Volume 87.9 fL (80-98); Mean Platelet Volume 9.3 fL (9.4-12.3); Monocytes Absolute Auto 0.6 X10*3/uL (0.1-1.2); Monocytes Percent Auto 5.3 % (2-11); Neutrophils Absolute Auto 5.7 X10*3/uL (2.0-8.3); Neutrophils Percent Auto 53.5 % (45-73); Platelet Count 323 X10*3/uL (160-400); Red Cell Distribution Width 13.2 % (11.0-16.0); White Blood Count 10.6 X10*3/uL (4.8-10.8)
[2020-04-06 17:34] LABS: Anion Gap 10 (12-20); Blood Urea Nitrogen 7 mg/dL (9-16); Calcium 8.1 mg/dL (8.4-10.2); Carbon Dioxide 24 mmol/L (22-29); Chloride 106 mmol/L (96-108); Creatinine Clr Calc Pharmacy 123.6; Estimated Glomerular Filt Rate > 60; Glucose Random 95 mg/dL (60-115); Potassium 3.6 mmol/l (3.3-5.1); Sodium 136 mmol/L (135-145)
[2020-04-06 17:41] LABS: HCG Quantitative 9486 mIU/mL
== END 2020-04-06 18:18 | disposition home or self-care (01) ==
PROVIDERS: Nurse Practitioner Family; Emergency Provider Emergency Medicine
DX: O26.91 Pregnancy related conditions, unspecified, first trimester (principal); Z3A.08 8 weeks gestation of pregnancy
CPT/HCPCS: 36415; 76801; 76817; 80048; 81001; 81025; 84702; 85025; 86900; 86901; 99284

== ENCOUNTER → 2020-04-20 13:49 | Outpatient (BNVA) | payer OTHER, SELFPAY | PROVIDERS: PCP Physician Assistant; Visit Provider Advanced Practice Midwife | DX: Z34.90 Encounter for supervision of normal pregnancy, unspecified, unspecified trimester (principal) | CPT/HCPCS: 99202 ==

== ENCOUNTER 2020-04-24 12:05 | Outpatient (REF) | payer OTHER, SELFPAY ==
--- NOTE | 2020-04-24 12:07 | US_ITS ---
EXAMINATION: US OB LESS THAN 14 WEEKS CLINICAL INFORMATION: Dating. COMPARISON: Ultrasound OB 04/06/2020 TECHNIQUE: Transabdominal ultrasound of the pelvis is performed. FINDINGS: There is an intrauterine gestational sac, pole and yolk sac. The crown-rump length measures 1.36 cm corresponding to 7 weeks, 5 days and MYLES of 12/06/2020. There is normal motion with a heart rate of 158 bpm. The right ovary measures 4.75 x 3.79 x 2.69 cm. The left ovary measures 6.03 x 3.99 x 5.76 cm. There is an anechoic cyst measuring 4.2 x 3.4 x 4.3 cm. There is no free fluid in the cul-de-sac. US/US OB <= 14 weeks fetus IMPRESSION: Single live intrauterine fetus with an ultrasound gestational age of 7 weeks, 5 days and MYLES of 12/06/2020.
== END 2020-04-24 12:06 | disposition home or self-care (01) ==
LOC: HO.HMGCX 12:05
PROVIDERS: Visit Provider Advanced Practice Midwife
DX: O36.80X0 Pregnancy with inconclusive fetal viability, not applicable or unspecified (principal); Z3A.01 Less than 8 weeks gestation of pregnancy
CPT/HCPCS: 76801

== ENCOUNTER → 2020-05-04 14:02 | Outpatient (BNVA) | payer OTHER, SELFPAY | PROVIDERS: PCP Physician Assistant; Visit Provider Advanced Practice Midwife | DX: Z13.89 Encounter for screening for other disorder (principal) | CPT/HCPCS: 99212 ==

== ENCOUNTER 2020-05-10 11:48 | Outpatient (REF) | payer OTHER, SELFPAY ==
[2020-05-10 12:34] LABS: MANUAL DIFF FLAG NO
[2020-05-10 12:39] LABS: Basophils Absolute Auto 0.1 X10*3/uL (0.0-0.2); Basophils Percent Auto 0.7 % (0-2); Eosinophils Absolute Auto 0.1 X10*3/uL (0.0-0.4); Eosinophils Percent Auto 1.2 % (0-4); Hematocrit 34.5 % (37-47); Hemoglobin 11.7 g/dl (12.0-16.0); Imm Gran Abs Auto 0.06 X10*3/uL (0.00-0.03); Imm Gran Pct Auto 0.6 % (0.0-0.4); Lymphocytes Absolute Auto 3.1 X10*3/uL (1.2-4.9); Lymphocytes Percent Auto 29.8 % (20-40); Mean Corpuscular HGB Conc 33.9 g/dl (31.0-35.0); Mean Corpuscular Hemoglobin 29.2 pg (27.0-33.0); Mean Platelet Volume 9.7 fL (9.4-12.3); Monocytes Absolute Auto 0.5 X10*3/uL (0.1-1.2); Monocytes Percent Auto 4.9 % (2-11); Neutrophils Absolute Auto 6.5 X10*3/uL (2.0-8.3); Neutrophils Percent Auto 62.8 % (45-73); Platelet Count 387 X10*3/uL (160-400); Red Blood Count 4.01 X10*6/uL (4.20-5.50); Red Cell Distribution Width 12.4 % (11.0-16.0); White Blood Count 10.3 X10*3/uL (4.8-10.8)
[2020-05-10 13:35] LABS: Amphetamine Screen Urine Not Detected (Not Detect); Barbiturates, Urine Not Detected (Not Detect); Benzodiazepines Screen Urine Not Detected (Not Detect); Cannabinoid Screen Urine Not Detected (Not Detect); Cocaine Screen Urine Not Detected (Not Detect); Opiate Screen Urine Not Detected (Not Detect); Phencyclidine Screen Urine Not Detected (Not Detect)
[2020-05-10 13:49] LABS: Syphilis Screen Nonreactive (Nonreactive)
[2020-05-11 05:37] LABS: Rubella IgG Antibody <0.90 Index
[2020-05-11 08:37] LABS: HBsAGNum1 0.15 S/CO (0.00-0.99); HIV AB/AG Nonreactive (Nonreactive); HIV Num 1 0.13 S/CO (0.00-0.99); Hepatitis B Surface Antigen Negative (Negative)
[2020-05-11 08:42] LABS: ~HepC Num1 0.11 S/CO (0.00-0.79); ~Hepatitis C Antibody Nonreactive (Nonreactive)
== END 2020-05-10 11:49 | disposition home or self-care (01) ==
LOC: HO.LAB 11:48
PROVIDERS: Visit Provider Advanced Practice Midwife
DX: Z34.90 Encounter for supervision of normal pregnancy, unspecified, unspecified trimester (principal)
CPT/HCPCS: 80307; 85025; 86762; 86780; 86787; 86803; 86850; 86900; 86901; 87086; 87340; 87389

== ENCOUNTER 2020-05-17 18:21 | Emergency (ER) | payer OTHER, SELFPAY ==
[2020-05-17 18:43] VITALS: BP 122/60; PULSE 95; RESP 20; TEMP 36.7; O2SAT 100; BMI 36.1
[2020-05-17 20:11] VITALS: BP 114/65; PULSE 97; RESP 17; TEMP 37.4; O2SAT 100
[2020-05-17 20:35] LABS: MANUAL DIFF FLAG NO
--- NOTE | 2020-05-17 20:35 | ED.NAVMDI ---
HPI - Nausea/Vomiting/Diarrhea General Chief complaint: Abdominal Pain Stated complaint: vomiting Time Seen by Provider: 05/17/20 20:16 Source: patient Mode of arrival: ambulatory Limitations: no limitations History of Present Illness HPI Narrative: Patient comes to emergency room complaining of vomiting. Patient is a at approximately 10 weeks and 4 days of gestational age. Patient states her has been unremarkable c consultant yesterday, patient started vomiting. Patient estimates she has vomited approximately 5 times yesterday and 5 times today, no diarrhea, complaining of occasional abdominal cramping with nausea, no uterine cramping, no vaginal discharge, no vaginal bleeding. Patient denies URI symptoms. Related Data Previous Rx's Medication Instructions Recorded acetaminophen [Tylenol] 650 mg PO Q6H PRN #10 tab 02/04/20 azithromycin See Rx Instructions .ROUTE 02/04/20 .COMPLEX #6 tab cyclobenzaprine 10 mg PO TID PRN #10 tab 02/04/20 ondansetron HCl [Zofran] 4 mg PO Q6H PRN #10 tab 02/04/20 cephalexin [Keflex] 500 mg PO Q8H 7 Days #21 cap 03/13/20 phenazopyridine [Pyridium] 200 mg PO TID PRN #10 tab 03/13/20 prenat.vits,faiza,cwl-rjpb-gxzhg 1 tab PO DAILY #30 tab NS 04/06/20 promethazine 25 mg PO TID PRN #14 tab 05/17/20 Allergies Allergy/AdvReac Type Severity Reaction Status Date / Time aspirin [ASA] Allergy Unknown HIVES Verified 04/20/20 14:16 Review of Systems Review of Systems: Constitutional : No Weight loss, No Fever, No Chills, No Night Sweats, No Fatigue, No Malaise ENT/Mouth : No Hearing loss, No Ear Pain, No Nasal Congestion, No Sinus Pain, No Hoarseness, No sore throat, No Rhinorrhea, No Swallowing Difficulty Eyes: No Eye Pain, No Swelling, No Redness, No Foreign Body, No Discharge, No Vision Changes Cardiovascular : No Chest Pain, No SOB, No Dyspnea on Exertion, No Orthopnea, No Edema, No Palpitations Respiratory : No Cough, No Sputum, No Wheezing, No Smoke Exposure, No Dyspnea Gastrointestinal : Complaining of nausea and vomiting No Diarrhea, No Constipation, mild abdominal discomfort, No Hematochezia, No Melena Genitourinary : no irregular bleeding, No Dysuria, No Urinary Frequency, No Hematuria, No Urinary Incontinence, No Urgency, No Flank Pain, No Urinary Flow Changes, No Hesitancy Musculoskeletal : No joint pain, No Myalgias, No Joint Swelling Skin : No Skin Lesions, No rash Neuro : No Weakness, No Numbness, No Paresthesias, No Loss of Consciousness, No Dizziness, No Headache Psych : No Anxiety/Panic, No Depression, No SI/HI/AH/VH, No Social Issues, Heme/Lymph: No Bruising, No Bleeding,No Lymphadenopathy Endocrine : No Polyuria, No Polydipsia, No Temperature Intolerance [facility] Past Medical History Surgical History History of appendectomy Social History Social History (Updated 05/04/20 @ 14:09 by Lyly Castillo LPN) Household Members: None Alcohol intake: never Smoking Status: Never smoker Use of substances other than those prescribed or required for medical reasons: No Advance Directives: No Advance Directives Information Provided: Yes Sexual orientation: Straight/Heterosexual Physical Exam Vital Signs: Vital Signs: Last Vital Signs Temp 99.3 F 05/17/20 20:11 Pulse 97 05/17/20 20:11 Resp 17 05/17/20 20:11 BP 114/65 05/17/20 20:11 Pulse Ox 100 05/17/20 20:11 Body Mass Index 36.1 Appearance: Alert. Oriented X3. No acute distress. Eyes: Pupils equal, round and reactive to light. ENT: Pharynx normal. Neck: Normal inspection. Neck supple. No lymph nodes noted. No crepitus CVS: Normal heart rate and rhythm. Pulses normal. Normal S1 and S2 Respiratory: No respiratory distress. Breath sounds normal. No Wheezing. No rales Abdomen: Soft and nontender. No rigidity. No distention. good BS x4, bedside ultrasound shows good movement, heart rate 130-140 Skin: Skin warm and dry. Normal skin color. Normal skin turgor. Extremities: No lower extremity edema. No lower extremity edema. No Lacerations. No Rash Neuro: Oriented X 3. No motor deficit. No sensory deficit. Moving all extermities. No slurred speech. Course Course Course Narrative: Patient states that she is feeling much better, no longer nauseous or vomiting. No abdominal pain/cramping. Patient has an appointment with her OBGYN in 2 days MDM - Nausea/Vomiting/Diarrhea Lab Data Result diagrams: 05/17/20 20:25 05/17/20 21:34 Labs: Lab Results 05/17/20 05/17/20 05/17/20 Range/Units 20:15 20:25 20:25 WBC 15.0 H (4.8-10.8) X10*3/uL RBC 3.74 L (4.20-5.50) X10*6/uL Hgb 11.1 L (12.0-16.0) g/dl Hct 32.4 L (37-47) % MCV 86.6 (80-98) fL MCH 29.7 (27.0-33.0) pg MCHC 34.3 (31.0-35.0) g/dl RDW 12.6 (11.0-16.0) % Plt Count 330 (160-400) X10*3/uL MPV 9.3 L (9.4-12.3) fL Immature Gran % (Auto) 0.6 H (0.0-0.4) % Neut % (Auto) 65.8 (45-73) % Lymph % (Auto) 26.8 (20-40) % [place] % (Auto) 5.0 (2-11) % Eos % (Auto) 1.4 (0-4) % Baso % (Auto) 0.4 (0-2) % Lymph # (Auto) 4.0 (1.2-4.9) X10*3/uL [place] # (Auto) 0.8 (0.1-1.2) X10*3/uL Eos # (Auto) 0.2 (0.0-0.4) X10*3/uL Baso # (Auto) 0.1 (0.0-0.2) X10*3/uL Abs Immat Gran (auto) 0.09 H (0.00-0.03) X10*3/uL Absolute Neuts (auto) 9.9 H (2.0-8.3) X10*3/uL Absolute Nucleated RBC 0.000 (0.0-0.012) X10*3/uL Nucleated RBC % (auto) 0.0 (0.0-0.2) /100WBC Hold Blue Top SEE NOTE Sodium (135-145) mmol/L Potassium (3.3-5.1) mmol/L Chloride (96-108) mmol/L Carbon Dioxide (22-29) mmol/L Anion Gap (12-20) BUN (9-16) mg/dL Creatinine (0.5-1.4) mg/dL Estim Creat Clear Calc Estimated GFR Random Glucose (60-115) mg/dL Calcium (8.4-10.2) mg/dL Total Bilirubin (0.0-1.0) mg/dL Direct Bilirubin (0.0-0.5) mg/dL AST (5-31) U/L ALT (0-31) U/L Alkaline Phosphatase (39-117) U/L Total Protein (6.5-8.0) g/dL Albumin (3.5-5.0) g/dL Lipase (8-78) U/L Beta HCG, Quant mIU/mL Urine Color YELLOW Urine Appearance HAZY Urine pH 6.0 (5.0-8.0) Ur Specific [place] 1.015 (1.005-1.025) Urine Protein NEG (NEG-TRACE) MG/DL Urine Glucose (UA) NEG (NEG) MG/DL Urine Ketones NEG (NEG) MG/DL Urine Blood 2+ H (NEG) Urine Nitrite NEG (NEG) Ur Leukocyte Esterase NEG (NEG) Urine RBC 1-4 (0) /HPF Urine WBC 0 (0-4) /HPF Ur Squamous Epith Cells 2+ /LPF Urine Bacteria 1+ /LPF Urine Test POSITIVE H (NEGATIVE) 05/17/20 05/17/20 05/17/20 Range/Units 21:34 21:34 21:34 WBC (4.8-10.8) X10*3/uL RBC (4.20-5.50) X10*6/uL Hgb (12.0-16.0) g/dl Hct (37-47) % MCV (80-98) fL MCH (27.0-33.0) pg MCHC (31.0-35.0) g/dl RDW (11.0-16.0) % Plt Count (160-400) X10*3/uL MPV (9.4-12.3) fL Immature Gran % (Auto) (0.0-0.4) % Neut % (Auto) (45-73) % Lymph % (Auto) (20-40) % [place] % (Auto) (2-11) % Eos % (Auto) (0-4) % Baso % (Auto) (0-2) % Lymph # (Auto) (1.2-4.9) X10*3/uL [place] # (Auto) (0.1-1.2) X10*3/uL Eos # (Auto) (0.0-0.4) X10*3/uL Baso # (Auto) (0.0-0.2) X10*3/uL Abs Immat Gran (auto) (0.00-0.03) X10*3/uL Absolute Neuts (auto) (2.0-8.3) X10*3/uL Absolute Nucleated RBC (0.0-0.012) X10*3/uL Nucleated RBC % (auto) (0.0-0.2) /100WBC Hold Blue Top Sodium 136 (135-145) mmol/L Potassium 3.7 (3.3-5.1) mmol/L Chloride 105 (96-108) mmol/L Carbon Dioxide 24 (22-29) mmol/L Anion Gap 11 L (12-20) BUN 6 L (9-16) mg/dL Creatinine 0.59 (0.5-1.4) mg/dL Estim Creat Clear Calc 136.3 Estimated GFR > 60 Random Glucose 90 (60-115) mg/dL Calcium 8.5 (8.4-10.2) mg/dL Total Bilirubin < 0.2 < 0.2 (0.0-1.0) mg/dL Direct Bilirubin < 0.2 (0.0-0.5) mg/dL AST 15 14 (5-31) U/L ALT 13 14 (0-31) U/L Alkaline Phosphatase 47 47 (39-117) U/L Total Protein 6.7 6.5 (6.5-8.0) g/dL Albumin 3.8 3.8 (3.5-5.0) g/dL Lipase 30 (8-78) U/L Beta HCG, Quant 35542 mIU/mL Urine Color Urine Appearance Urine pH (5.0-8.0) Ur Specific [place] (1.005-1.025) Urine Protein (NEG-TRACE) MG/DL Urine Glucose (UA) (NEG) MG/DL Urine Ketones (NEG) MG/DL Urine Blood (NEG) Urine Nitrite (NEG) Ur Leukocyte Esterase (NEG) Urine RBC (0) /HPF Urine WBC (0-4) /HPF Ur Squamous Epith Cells /LPF Urine Bacteria /LPF Urine Test (NEGATIVE) Discharge Plan Discharge Clinical Impression: Vomiting Qualifiers: Vomiting type: unspecified Vomiting Intractability: unspecified Nausea presence: unspecified Qualified Code(s): R11.10 - Vomiting, unspecified Patient Disposition: Home, Self-Care Instructions: Acute Nausea and Vomiting (ED) Additional Instructions: Please follow-up with your OBGYN. Please follow-up with your primary care physician tomorrow. If you have any worsening or new symptoms, please return to the emergency room or call 911 Prescriptions: New promethazine 25 mg tablet 25 mg PO TID PRN (Reason: nausea and vomiting) Qty: 14 RF: 0 No Action cyclobenzaprine 10 mg tablet 10 mg PO TID PRN (Reason: muscle spasm) Qty: 10 RF: 0 azithromycin 250 mg tablet See Rx Instructions .ROUTE .COMPLEX Qty: 6 RF: 0 acetaminophen [Tylenol] 325 mg tablet 650 mg PO Q6H PRN (Reason: fever or pain) Qty: 10 RF: 0 ondansetron HCl [Zofran] 4 mg tablet 4 mg PO Q6H PRN (Reason: nausea and vomiting) Qty: 10 RF: 0 cephalexin [Keflex] 500 mg capsule 500 mg PO Q8H 7 Days Qty: 21 RF: 0 phenazopyridine [Pyridium] 200 mg tablet 200 mg PO TID PRN (Reason: pain) Qty: 10 RF: 0 prenat.vits,faiza,ixt-rzby-jbuvw Tablet 1 tab PO DAILY Qty: 30 RF: 0
[2020-05-17 20:37] LABS: Basophils Absolute Auto 0.1 X10*3/uL (0.0-0.2); Basophils Percent Auto 0.4 % (0-2); Eosinophils Absolute Auto 0.2 X10*3/uL (0.0-0.4); Eosinophils Percent Auto 1.4 % (0-4); Hematocrit 32.4 % (37-47); Hemoglobin 11.1 g/dl (12.0-16.0); Imm Gran Abs Auto 0.09 X10*3/uL (0.00-0.03); Imm Gran Pct Auto 0.6 % (0.0-0.4); Lymphocytes Percent Auto 26.8 % (20-40); Mean Corpuscular HGB Conc 34.3 g/dl (31.0-35.0); Mean Corpuscular Hemoglobin 29.7 pg (27.0-33.0); Mean Corpuscular Volume 86.6 fL (80-98); Mean Platelet Volume 9.3 fL (9.4-12.3); Monocytes Absolute Auto 0.8 X10*3/uL (0.1-1.2); Neutrophils Absolute Auto 9.9 X10*3/uL (2.0-8.3); Neutrophils Percent Auto 65.8 % (45-73); Platelet Count 330 X10*3/uL (160-400); Red Blood Count 3.74 X10*6/uL (4.20-5.50); Red Cell Distribution Width 12.6 % (11.0-16.0)
[2020-05-17 20:40] LABS: Glucose Urine UA NEG (NEG); Leukocyte Esterase Urine NEG (NEG); Nitrite Urine NEG (NEG); Specific Gravity - Urine 1.015 (1.005-1.025); Urine Blood 2+ (NEG); Urine Ketones NEG (NEG); Urine Protein NEG (NEG-TRACE)
[2020-05-17 20:42] LABS: UPreg QC Valid YES; Urine Pregnancy POSITIVE (NEGATIVE)
[2020-05-17 20:43] LABS: Appearance Urine HAZY; Color Urine YELLOW
[2020-05-17 20:47] LABS: Bacteria Urine 1+ /LPF; Squamous Epithelial Cell Urine 2+ /LPF; WBC Urine 0 /HPF (0-4)
[2020-05-17] MEDS: 0.9 % Sodium Chloride 1,000 ML 999 ML IVCONT (20:54)
[2020-05-17 22:08] LABS: Alanine Aminotransferase 13 U/L (0-31); Albumin Level 3.8 g/dL (3.5-5.0); Alkaline Phosphatase 47 U/L (39-117); Anion Gap 11 (12-20); Aspartate Amino Transferase 15 U/L (5-31); Bilirubin Total < 0.2 mg/dL (0.0-1.0); Blood Urea Nitrogen 6 mg/dL (9-16); Calcium 8.5 mg/dL (8.4-10.2); Carbon Dioxide 24 mmol/L (22-29); Chloride 105 mmol/L (96-108); Creatinine Clr Calc Pharmacy 136.3; Estimated Glomerular Filt Rate > 60; Glucose Random 90 mg/dL (60-115); Lipase 30 U/L (8-78); Potassium 3.7 mmol/L (3.3-5.1); Sodium 136 mmol/L (135-145); Total Protein 6.7 g/dL (6.5-8.0)
[2020-05-17 22:10] LABS: Alanine Aminotransferase 14 U/L (0-31); Albumin Level 3.8 g/dL (3.5-5.0); Alkaline Phosphatase 47 U/L (39-117); Aspartate Amino Transferase 14 U/L (5-31); Bilirubin Direct < 0.2 mg/dL (0.0-0.5); Bilirubin Total < 0.2 mg/dL (0.0-1.0); Total Protein 6.5 g/dL (6.5-8.0)
== END 2020-05-17 23:36 | disposition home or self-care (01) ==
PROVIDERS: Emergency Provider Emergency Medicine; PCP Physician Assistant
DX: O26.891 Other specified pregnancy related conditions, first trimester (principal); R11.10 Vomiting, unspecified; Z3A.10 10 weeks gestation of pregnancy
CPT/HCPCS: 36415; 80053; 80076; 81001; 81025; 82248; 83690; 84702; 85025; 96361; 96374; 99284

== ENCOUNTER 2020-05-19 11:03 | Outpatient (REF) | payer OTHER, SELFPAY ==
--- NOTE | ~2020-05-19 | US_ITS ---
EXAMINATION: OBSTETRICAL ULTRASOUND, FIRST TRIMESTER HISTORY: 29-year-old at 11.1 weeks of gestation NT screening High BMI COMPARISON: 04/24/2020 TECHNIQUE: Real time transabdominal imaging with color and M-mode Doppler. FINDINGS: A single, live IUP CRL of 50.9 mm c/w 11.6wks is noted. Heart Rate: 169 beats per minute. Normal yolk sac seen. NT was 1.2.mm. NB Present The embryo appears sonographically wnl for this GA. Left ovary contains an anechoic cyst with single septation. 5.9 x 5.5 cm. Compared to previous, there is minimal change. Right ovary is within normal limits. GESTATIONAL AGE: 1. Established GA: 11.1 wks 2. GA from AUA: 11.6 wks ESTIMATED DATE OF DELIVERY: 1. Established MYLES: 12/07/2020 2. MYLES from AUA: 11/24/2020 US/US OB 1T nuc measure IMPRESSION: 1. A single live IUP 2. Size equals dates 3. NT of 1.2 mm 4. The left ovarian cyst which was noted previously. Stable. MFM Consultation: I reviewed the ultrasound findings along with significance of NT measurement. The NT of less than 3mm is generally reassuring. However, the sensitivity for T21 detection is only 60%. I reviewed the availability of serum aneuploidy screening which includes cell-free DNA and placental protein based tests. I discussed the sensitivity, false-positive rate, and other limitations associated with each test. I also reviewed the availability of invasive diagnostic tests that are associated small but definite risk of miscarriage. We also reviewed the differences between screening tests and diagnostic tests. After our discussion, she opted for the First trimester screening that is based on cell-free DNA or non-invasive testing (NIPT). The result will be faxed to your office in approximately 7 days. A follow up at 18 weeks for survey has been scheduled. Thank you very much for this referral. Majority of this visit was spent reviewing her care and counselling her in face to face time: Time spent 20 min.
== END 2020-05-19 11:04 | disposition home or self-care (01) ==
LOC: HO.US 11:03
PROVIDERS: Visit Provider Advanced Practice Midwife
DX: Z34.90 Encounter for supervision of normal pregnancy, unspecified, unspecified trimester (principal); Z36.82 Encounter for antenatal screening for nuchal translucency
CPT/HCPCS: 76813

== ENCOUNTER 2020-05-23 10:34 | Outpatient (REF) | payer OTHER, SELFPAY ==
[2020-05-24 09:21] LABS: BV Int Neg Control Negative (Negative); BV Int Pos Control Positive (Positive)
[2020-05-24 17:36] LABS: C. trachomatis RNA TMA NOT DETECTED (NOT DETECTED); N. gonorrhoeae RNA TMA NOT DETECTED (NOT DETECTED)
[2020-06-01 05:52] LABS: HPV 16 RNA NOT DETECTED (NOT DETECTED); HPV mRNA E6/E7 rflx Detected (Not Detected)
== END 2020-05-23 10:35 | disposition home or self-care (01) ==
LOC: HO.LAB 10:34
PROVIDERS: PCP Physician Assistant; Visit Provider Advanced Practice Midwife
DX: Z34.01 Encounter for supervision of normal first pregnancy, first trimester (principal)
CPT/HCPCS: 36415; 81003; 87480; 87491; 87510; 87591; 87624; 87625; 87660; 88142; 99212

== ENCOUNTER → 2020-06-19 08:51 | Outpatient (BNVA) | payer OTHER, SELFPAY | PROVIDERS: PCP Physician Assistant; Visit Provider Advanced Practice Midwife | DX: Z34.92 Encounter for supervision of normal pregnancy, unspecified, second trimester (principal); Z3A.15 15 weeks gestation of pregnancy | CPT/HCPCS: 81003; 99212 ==

== ENCOUNTER → 2020-06-27 08:31 | Outpatient (BNVA) | payer OTHER, SELFPAY | PROVIDERS: Visit Provider Obstetrics & Gynecology | DX: Z34.02 Encounter for supervision of normal first pregnancy, second trimester (principal) | CPT/HCPCS: 99212 ==

== ENCOUNTER 2020-07-07 08:21 | Outpatient (REF) | payer OTHER, SELFPAY ==
--- NOTE | ~2020-07-07 | US_ITS ---
EXAMINATION: US OBSTETRICAL CLINICAL INFORMATION: 29-year-old at 18.1 weeks of gestation Screening for anomaly COMPARISON: 05/19/2020 TECHNIQUE: Real-time transabdominal ultrasound was performed using C1-5 megahertz transducer. FINDINGS: A single, active, fetus is seen in breech presentation. The placenta is posterior without previa, and the amniotic fluid volume is wnl. MEASUREMENTS: 1. Biparietal Diameter: 4.1 cm; 18.4 wks 2. Occipital Frontal Diameter: 5.3 cm 3. Head Circumference: 15.1 cm; 18.1 wks 4. Abdominal Circumference: 12.7 cm; 18.2 wks 5. Femur Length: 2.8 cm; 18.4 wks 6. Humerus Length: 2.6 cm; 18.3 wks 7. Tibia Length: 2.4 cm; 18.4 wks 8. Ulna Length: 2.4 cm; 18.5 wks 9. Lateral ventricle: 0.5 cm 10. Cerebellum: 1.8 cm; 18.6 wks 11. Cisterna Magna: 0.3 cm 12. Nuchal Fold: 3.3 mm 13. Heart Rate: 135 beats per minute Rt ovary: normal Lt ovary: There is an anechoic cyst measuring 2.9 x 3.2 x 3.8 cm. Cervical length 3.1 cm on T/A. GESTATIONAL AGE: 1. Established GA: 18.1 wks 2. GA from [facility]: 18.3 wks ESTIMATED DATE OF DELIVERY: 1. Established MYLES: 12/07/2020 2. MYLES from [facility]: 12/05/2020 ANATOMY: Isolated the echogenic intracardiac focus was seen. The visualized anatomy includes but not limited to: 1. Cranium: Normal 2. Intracranial anatomy: cavum septum pellucidi, lateral ventricles, choroid plexus, cerebellum, posterior fossa, third and fourth ventricles. 3. face: orbits, lip/palate, profile, nasal bone 4. Heart: four-chamber view of the heart, ventricular septum, foramen ovale, pulmonary vein, left and right outflow tracts, three-vessel view, 3 vessel trachea view, aortic and ductal arches, situs.. 5. Diaphragm: Normal 6. Abdominal wall: Normal 7. Cord Insertion: Normal 8. Spine: Cervical, thoracic, lumbar, sacral. 9. Stomach: Normal size and shape 10. Right Kidney: Normal 11. Left Kidney: Normal 12. 3 vessel cord: Normal 13. Upper extremity: Open hands, fifth digit. 14. Lower extremity: Tibia, fibula, bilateral feet. 15. Bladder: Normal 16. Genitalia: Male, patient aware US/US OB /maternal detail IMPRESSION: 1. Single, living, intrauterine with appropriate biometry. 2. Isolated EIF 3. Normal amniotic fluid volume DISCUSSION: I reviewed the association of trisomy 21 and EIF. The likelihood ratio is 2. She had the low risk N IPT. In in this setting, isolated EIF is considered a normal variant. I reassured the patient that EIF is not a cardiac defect and multiple resolve in all fetuses spontaneously. I reviewed today's ultrasound findings. We discussed the limitations of ultrasound in diagnosing aneuploidy and other congenital abnormalities. I reviewed the differences between screening test and diagnostic test. Amniocentesis was discussed and declined. She was informed that the baseline incidence of congenital abnormalities is approximately 3-5%. Not all these conditions are diagnosable in utero. RECOMMENDATIONS: Follow-up as clinically indicated. Thank you for allowing me to participate in her care. Total time 30 minutes. The time spent was devoted to counseling the patient about the disease and diagnosis, coordinating care including reviewing her records, pertinent lab data and studies, as well as discussing diagnostic evaluation and workup, plan therapeutic interventions and future disposition of care. This includes any additional research needed to obtain further information in formulating the plan of care of this patient. This note was generated with a voice recognition program. Please excuse any errors which may have been overlooked during my review of this note. Sometimes these errors may affect the content or meaning of a given sentence.
== END 2020-07-07 08:22 | disposition home or self-care (01) ==
LOC: HO.US 08:21
PROVIDERS: PCP Physician Assistant; Visit Provider Advanced Practice Midwife
DX: Z36.3 Encounter for antenatal screening for malformations (principal)
CPT/HCPCS: 76811

== ENCOUNTER 2020-07-17 10:37 | Outpatient (REF) | payer OTHER, SELFPAY | END 2020-07-17 10:38 | disposition home or self-care (01) | LOC: HO.LAB 10:37 | PROVIDERS: Visit Provider Advanced Practice Midwife | DX: O99.012 Anemia complicating pregnancy, second trimester (principal); D64.9 Anemia, unspecified; O99.212 Obesity complicating pregnancy, second trimester; E66.9 Obesity, unspecified; Z3A.19 19 weeks gestation of pregnancy | CPT/HCPCS: 81003; 87086; 99212 ==

== ENCOUNTER 2020-07-30 15:34 | Emergency (ER) | payer OTHER, SELFPAY ==
--- NOTE | ~2020-07-30 | US_ITS ---
EXAMINATION: US OBSTETRICAL ULTRASOUND, LIMITED SECOND TRIMESTER CLINICAL INFORMATION: 21 weeks, RLQ pain, vaginal spotting h/o appendectomy COMPARISON: 07-25 GESTATIONAL AGE: Established GA from her earliest ultrasound: 21 weeks 3 days ESTIMATED DATE OF DELIVERY: 12/07/2020 TECHNIQUE: Real time transabdominal imaging with color and M-mode Doppler. POSITION: Cephalic PLACENTA: Posterior . Attachment appears normal. No appreciable sciatic findings of abruption. AMNIOTIC FLUID: NORMAL HEART RATE: 136 BPM MOVEMENT: Present CERVIX: 3.5 cm in length. Closed. Maternal exam: Right ovary measures 2.6 x 1.7 x 2.4 cm and is normal in appearance. The left ovary measures 4.6 x 2.5 x 4.3 cm and contains a 2.9 x 2.2 x 2.3 cm anechoic simple appearing cyst which was previously seen, likely a corpus luteum cyst. The right kidney is normal in appearance, measuring 10.8 cm in length. No appreciable right-sided hydronephrosis. Right and left ureteral jets are evident at the bladder. US/US OB limited IMPRESSION: 1. Single intrauterine gestation in cephalic position with posterior placenta. No acute abnormal findings on this limited study. 2. No acute intrapelvic abnormalities. Ovaries are normal in appearance. A 2.9 cm simple left ovarian cyst is unchanged from prior, likely a corpus luteum cyst.
[2020-07-30 15:37] VITALS: BP 121/66; PULSE 102; RESP 16; TEMP 36.8; O2SAT 98; BMI 35.9
--- NOTE | 2020-07-30 17:23 | ED.GENADULT ---
HPI - General Adult General Chief complaint: Vaginal Bleeding Stated complaint: 21 wks preg - spotting Time Seen by Provider: 07/30/20 17:07 Source: patient Mode of arrival: ambulatory Limitations: no limitations History of Present Illness HPI narrative: 30-year-old female G1, P0, EDC 12/07/2020, LMP 03/01/2020, 21 weeks who presents emergency department for evaluation right-sided abdominal cramping and vaginal spotting which began 2 days prior. Patient's notes small amounts blood coming from her vagina. This started yesterday and continues today. She also states that she had a gradual onset of right lower quadrant pain which she describes as a cramping sensation, which is intermittent and is 9/10 at its worst. She denied fever, chills, nausea, vomiting, chest pain, shortness of breath, headache, lower extremity swelling. The patient has not had a COVID-19 infection. She has not been vaccinated for COVID-19. Related Data Previous Rx's Medication Instructions Recorded acetaminophen [Tylenol] 650 mg PO Q6H PRN #10 tab 02/04/20 azithromycin See Rx Instructions .ROUTE 02/04/20 .COMPLEX #6 tab cyclobenzaprine 10 mg PO TID PRN #10 tab 02/04/20 ondansetron HCl [Zofran] 4 mg PO Q6H PRN #10 tab 02/04/20 cephalexin [Keflex] 500 mg PO Q8H 7 Days #21 cap 03/13/20 phenazopyridine [Pyridium] 200 mg PO TID PRN #10 tab 03/13/20 prenat.vits,faiza,mwr-nisf-koses 1 tab PO DAILY #30 tab NS 04/06/20 promethazine 25 mg PO TID PRN #14 tab 05/17/20 Allergies Allergy/AdvReac Type Severity Reaction Status Date / Time aspirin [ASA] Allergy Unknown HIVES Verified 07/17/20 11:25 Review of Systems Review of Systems: Yes all other systems are reviewed and are negative [facility] Past Medical History [facility] Narrative: She denies tobacco, alcohol and drug use. Surgical History History of appendectomy Social History Social History Household Members: None Alcohol intake: never Smoking Status: Never smoker Smoked in Last 30 Days: No Use of substances other than those prescribed or required for medical reasons: No Advance Directives: No Advance Directives Information Provided: No Sexual orientation: Straight/Heterosexual Physical Exam Vital Signs: Vital Signs: Last Vital Signs Temp 98.7 F 07/30/20 18:46 Pulse 91 07/30/20 18:46 Resp 18 07/30/20 18:46 BP 125/69 07/30/20 18:46 Pulse Ox 99 07/30/20 18:46 Body Mass Index 35.9 Const: General: cooperative, no acute distress, alert and awake Orientation/consciousness: oriented to person and oriented to place Limitations: no limitations HENMT: Head: Yes normal to inspection, Yes normocephalic and Yes atraumatic Ears: external ears normal General nose exam: Normal external nose present Face and sinus: Yes normal facial exam Mouth: Normal oral and palatal mucosa present Throat: Yes posterior oropharynx normal Eyes: General: appearance normal, both eyes and all related structures Periorbital: periorbital findings normal Eyelids: Yes eyelids normal Conjunctivae: conjunctivae normal Sclerae: sclerae normal Corneas: corneas normal Pupils: Equal, round and reactive pupils present Direct Ophthalmoscopy: normal light reflex Neck: Neck: Yes normal visual inspection and Yes supple Lymphatic: no lymphadenopathy noted Chest: Chest palpation & inspection: normal inspection of the chest and normal palpation of entire chest wall Resp: Effort & Inspection: normal respiratory effort, abnormal respiratory pattern, no audible wheezes and no respiratory distress Auscultation: clear to auscultation bilaterally, no crackles, no rales, no rhonchi and no wheezes Cardio: Rate: regular rate Rhythm: regular rhythm Heart sounds: S1 normal heart sound present, S2 normal heart sound present and no murmurs GI: Inspection: No distended and Yes other (Gravid uterus) Palpation (GI): Soft to palpation, Tenderness to palpation present (GI) in the RLQ (Moderate), no guarding and No hepatosplenomegaly present Auscultation: normal bowel sounds : General: Yes no CVA tenderness Back/Spine/Pelvis: Back: no CVA tenderness Cervical Spine: normal cervical lordosis Thoracic/Lumbar Spine: thoracic and lumbar spine normal to inspection Skin: General skin exam: no rashes or lesions noted Lesions: no lesions Rashes: no rashes Wounds: no wounds Neuro: General: oriented to person and oriented to place Cranial nerves: Yes CN's II-XII intact bilaterally and Yes Equal, round and reactive pupils present Cognition (Neuro): normal cognition Motor exam (neuro): 5/5 motor strength present throughout Extrem: General: Yes normal to inspection, Yes full ROM, Yes no pedal edema and Yes no calf tenderness Psych: Appearance: grossly normal Mental Status: mental status grossly normal Speech and movement: Clear speech present Affect: normal affect Attitude: cooperative Thought process: Normal thought process present Thought content: Normal thought content present Course Course Course Narrative: 30-year-old female G1, P0, 21 weeks who presents emergency department for evaluation of 2 days of vaginal bleeding with right lower quadrant pain. Physical examination did reveal right lower quadrant tenderness and a gravid uterus otherwise was unremarkable. The patient's blood type is A positive. Examination did reveal right lower quadrant tenderness otherwise was unremarkable. I ordered a CBC, CMP, lipase, urinalysis, quantitative beta HCG, ultrasound of the patient's abdomen to evaluate the fetus and source of bleeding. 1921: The patient's laboratory evaluation revealed mild anemia with an H&H of 10 and 30, [place] [address]. Patient has slightly low bicarb at 19 otherwise laboratory evaluation was unremarkable. The patient's obstetrics ultrasound revealed a single intrauterine gestation in the cephalic position with posterior placenta, no acute abnormal findings on this limited study. No clear cause for the patient's spotting or abdominal pain was found on the ultrasound. The patient's quantitative beta-hCG was 29,245, this is compared to 89,624 on 05/17/2020. Unclear with this decrease beta quant HCG signifies however the patient will need to follow-up with her OBGYN for further evaluation. I went to discuss these findings with the patient and she had left the emergency department without informing nursing staff. I did leave a phone message on the patient's listed cell phone number asking her to call me back to further discuss these findings. I did review the patient's last OBGYN appointment visit on 07/17/2020, the patient had a colposcopy at that time. Medical Decision Making Lab Data Result diagrams: 07/30/20 18:14 07/30/20 18:14 Labs: Lab Results 07/30/20 07/30/20 07/30/20 Range/Units 18:14 18:14 18:14 WBC 11.4 H (4.8-10.8) X10*3/uL RBC 3.47 L (4.20-5.50) X10*6/uL Hgb 10.3 L (12.0-16.0) g/dl Hct 30.2 L (37-47) % MCV 87.0 (80-98) fL MCH 29.7 (27.0-33.0) pg MCHC 34.1 (31.0-35.0) g/dl RDW 13.0 (11.0-16.0) % Plt Count 284 (160-400) X10*3/uL MPV 9.5 (9.4-12.3) fL Immature Gran % (Auto) 1.6 H (0.0-0.4) % Neut % (Auto) 63.1 (45-73) % Lymph % (Auto) 29.0 (20-40) % [place] % (Auto) 4.6 (2-11) % Eos % (Auto) 1.3 (0-4) % Baso % (Auto) 0.4 (0-2) % Lymph # (Auto) 3.3 (1.2-4.9) X10*3/uL [place] # (Auto) 0.5 (0.1-1.2) X10*3/uL Eos # (Auto) 0.2 (0.0-0.4) X10*3/uL Baso # (Auto) 0.1 (0.0-0.2) X10*3/uL Abs Immat Gran (auto) 0.18 H (0.00-0.03) X10*3/uL Absolute Neuts (auto) 7.2 (2.0-8.3) X10*3/uL Absolute Nucleated RBC 0.000 (0.0-0.012) X10*3/uL Nucleated RBC % (auto) 0.0 (0.0-0.2) /100WBC Sodium 136 (135-145) mmol/L Potassium 3.7 (3.3-5.1) mmol/L Chloride 107 (96-108) mmol/L Carbon Dioxide 19 L (22-29) mmol/L Anion Gap 14 (12-20) BUN 7 L (9-16) mg/dL Creatinine 0.55 (0.5-1.4) mg/dL Estim Creat Clear Calc 144.6 Estimated GFR > 60 Random Glucose 97 (60-115) mg/dL Calcium 8.7 (8.4-10.2) mg/dL Total Bilirubin < 0.2 (0.0-1.0) mg/dL AST 15 (5-31) U/L ALT 17 (0-31) U/L Alkaline Phosphatase 59 D (39-117) U/L Total Protein 6.1 L (6.5-8.0) g/dL Albumin 3.5 (3.5-5.0) g/dL Lipase 21 (8-78) U/L Urine Color YELLOW Urine Appearance CLEAR Urine pH 6.5 (5.0-8.0) Ur Specific [place] 1.010 (1.005-1.025) Urine Protein NEG (NEG-TRACE) MG/DL Urine Glucose (UA) NEG (NEG) MG/DL Urine Ketones NEG (NEG) MG/DL Urine Blood 1+ H (NEG) Urine Nitrite NEG (NEG) Ur Leukocyte Esterase TRACE H (NEG) Urine RBC 1-4 (0) /HPF Urine WBC 0-2 (0-4) /HPF Ur Squamous Epith Cells 4+ /LPF Urine Bacteria NONE /LPF Discharge Plan Discharge Prescriptions: No Action cyclobenzaprine 10 mg tablet 10 mg PO TID PRN (Reason: muscle spasm) Qty: 10 RF: 0 azithromycin 250 mg tablet See Rx Instructions .ROUTE .COMPLEX Qty: 6 RF: 0 acetaminophen [Tylenol] 325 mg tablet 650 mg PO Q6H PRN (Reason: fever or pain) Qty: 10 RF: 0 ondansetron HCl [Zofran] 4 mg tablet 4 mg PO Q6H PRN (Reason: nausea and vomiting) Qty: 10 RF: 0 cephalexin [Keflex] 500 mg capsule 500 mg PO Q8H 7 Days Qty: 21 RF: 0 phenazopyridine [Pyridium] 200 mg tablet 200 mg PO TID PRN (Reason: pain) Qty: 10 RF: 0 prenat.vits,faiza,izj-ocfq-ewnki Tablet 1 tab PO DAILY Qty: 30 RF: 0 promethazine 25 mg tablet 25 mg PO TID PRN (Reason: nausea and vomiting) Qty: 14 RF: 0
[2020-07-30 18:19] LABS: MANUAL DIFF FLAG NO
[2020-07-30 18:25] LABS: Glucose Urine UA NEG (NEG); Leukocyte Esterase Urine TRACE (NEG); Nitrite Urine NEG (NEG); PH 6.5 (5.0-8.0); UACC Culture Trigger YES; Urine Blood 1+ (NEG); Urine Ketones NEG (NEG); Urine Protein NEG (NEG-TRACE)
[2020-07-30 18:28] LABS: Appearance Urine CLEAR; Color Urine YELLOW
--- NOTE | 2020-07-30 18:33 | PC.NURSE ---
patient brought to ultrasound
[2020-07-30 18:36] LABS: Squamous Epithelial Cell Urine 4+ /LPF; WBC Urine 0-2 /HPF (0-4)
[2020-07-30 18:38] LABS: Basophils Absolute Auto 0.1 X10*3/uL (0.0-0.2); Basophils Percent Auto 0.4 % (0-2); Eosinophils Absolute Auto 0.2 X10*3/uL (0.0-0.4); Eosinophils Percent Auto 1.3 % (0-4); Hematocrit 30.2 % (37-47); Hemoglobin 10.3 g/dl (12.0-16.0); Imm Gran Abs Auto 0.18 X10*3/uL (0.00-0.03); Imm Gran Pct Auto 1.6 % (0.0-0.4); Lymphocytes Absolute Auto 3.3 X10*3/uL (1.2-4.9); Mean Corpuscular HGB Conc 34.1 g/dl (31.0-35.0); Mean Corpuscular Hemoglobin 29.7 pg (27.0-33.0); Mean Platelet Volume 9.5 fL (9.4-12.3); Monocytes Absolute Auto 0.5 X10*3/uL (0.1-1.2); Monocytes Percent Auto 4.6 % (2-11); Neutrophils Absolute Auto 7.2 X10*3/uL (2.0-8.3); Neutrophils Percent Auto 63.1 % (45-73); Platelet Count 284 X10*3/uL (160-400); Red Blood Count 3.47 X10*6/uL (4.20-5.50); White Blood Count 11.4 X10*3/uL (4.8-10.8)
--- NOTE | 2020-07-30 18:42 | PC.NURSE ---
pt returned from us
[2020-07-30 18:46] VITALS: BP 125/69; PULSE 91; RESP 18; TEMP 37.1; O2SAT 99
[2020-07-30 18:52] LABS: Alanine Aminotransferase 17 U/L (0-31); Albumin Level 3.5 g/dL (3.5-5.0); Alkaline Phosphatase 59 U/L (39-117); Anion Gap 14 (12-20); Aspartate Amino Transferase 15 U/L (5-31); Bilirubin Total < 0.2 mg/dL (0.0-1.0); Blood Urea Nitrogen 7 mg/dL (9-16); Calcium 8.7 mg/dL (8.4-10.2); Carbon Dioxide 19 mmol/L (22-29); Chloride 107 mmol/L (96-108); Creatinine Clr Calc Pharmacy 144.6; Estimated Glomerular Filt Rate > 60; Glucose Random 97 mg/dL (60-115); Lipase 21 U/L (8-78); Potassium 3.7 mmol/L (3.3-5.1); Sodium 136 mmol/L (135-145); Total Protein 6.1 g/dL (6.5-8.0)
== END 2020-07-30 19:48 | disposition left against medical advice (07) ==
PROVIDERS: Emergency Provider Emergency Medicine Emergency Medical Services
DX: O26.892 Other specified pregnancy related conditions, second trimester (principal); R10.31 Right lower quadrant pain; O46.92 Antepartum hemorrhage, unspecified, second trimester; O98.812 Other maternal infectious and parasitic diseases complicating pregnancy, second trimester; O34.82 Maternal care for other abnormalities of pelvic organs, second trimester; N83.202 Unspecified ovarian cyst, left side; O99.012 Anemia complicating pregnancy, second trimester; D64.9 Anemia, unspecified; Z3A.21 21 weeks gestation of pregnancy
CPT/HCPCS: 36415; 76815; 80053; 81001; 81003; 83690; 84702; 85025; 87086; 87147; 99284

== ENCOUNTER → 2020-08-14 10:33 | Outpatient (BNVA) | payer OTHER, SELFPAY | PROVIDERS: Visit Provider Advanced Practice Midwife | DX: Z34.92 Encounter for supervision of normal pregnancy, unspecified, second trimester (principal); Z3A.23 23 weeks gestation of pregnancy | CPT/HCPCS: 81003; 99212 ==

== ENCOUNTER 2020-09-11 10:55 | Outpatient (REF) | payer OTHER, SELFPAY ==
[2020-09-11 13:45] LABS: Hematocrit 31.7 % (37-47); Hemoglobin 10.6 g/dl (12.0-16.0); Mean Corpuscular HGB Conc 33.4 g/dl (31.0-35.0); Mean Corpuscular Hemoglobin 28.6 pg (27.0-33.0); Mean Corpuscular Volume 85.7 fL (80-98); Platelet Count 266 X10*3/uL (160-400); Red Cell Distribution Width 13.6 % (11.0-16.0); White Blood Count 11.3 X10*3/uL (4.8-10.8)
[2020-09-11 14:02] LABS: Glucose 1 Hour PP 50gm Dose 167 mg/dL (60-140)
[2020-09-11 14:18] LABS: Syphilis Screen Nonreactive (Nonreactive)
== END 2020-09-11 10:56 | disposition home or self-care (01) ==
LOC: HO.LAB 10:55
PROVIDERS: Visit Provider Advanced Practice Midwife
DX: O99.012 Anemia complicating pregnancy, second trimester (principal); O99.212 Obesity complicating pregnancy, second trimester; O34.82 Maternal care for other abnormalities of pelvic organs, second trimester; N83.202 Unspecified ovarian cyst, left side; Z3A.27 27 weeks gestation of pregnancy
CPT/HCPCS: 36415; 81003; 85027; 86780; 99212

== ENCOUNTER 2020-09-13 06:04 | Outpatient (REF) | payer OTHER, SELFPAY ==
[2020-09-13 08:27] LABS: Glucose Fasting 96 mg/dL (60-99)
[2020-09-13 09:06] LABS: Glucose 1 Hour 188 mg/dL
[2020-09-13 10:08] LABS: Glucose 2 Hour 138 mg/dL
[2020-09-13 10:38] LABS: Glucose 3 Hour 82 mg/dL
== END 2020-09-13 06:05 | disposition home or self-care (01) ==
LOC: HO.LAB 06:04
PROVIDERS: Visit Provider Advanced Practice Midwife
DX: Z34.92 Encounter for supervision of normal pregnancy, unspecified, second trimester (principal)
CPT/HCPCS: 36415; 82951

== ENCOUNTER → 2020-09-22 12:48 | Outpatient (BNVA) | payer OTHER, SELFPAY | PROVIDERS: Visit Provider Advanced Practice Midwife | DX: O24.419 Gestational diabetes mellitus in pregnancy, unspecified control (principal) | CPT/HCPCS: 99211 ==

== ENCOUNTER → 2020-09-25 13:33 | Outpatient (BNVA) | payer OTHER, SELFPAY | PROVIDERS: Visit Provider Advanced Practice Midwife | DX: O24.419 Gestational diabetes mellitus in pregnancy, unspecified control (principal); Z3A.29 29 weeks gestation of pregnancy | CPT/HCPCS: 81003; 99212 ==

== ENCOUNTER 2020-09-29 13:45 | Outpatient (REF) | payer OTHER, SELFPAY ==
--- NOTE | ~2020-09-29 | US_ITS ---
EXAMINATION: OBSTETRICAL ULTRASOUND, Follow up HISTORY: 30-year-old at 30.1 weeks of gestation Size date discrepancy GDM A1 COMPARISON: 07/30/2020 TECHNIQUE: Real time transabdominal imaging with color and M-mode Doppler. PRESENTATION: Vertex PLACENTA LOCATION: Posterior without previa AMNIOTIC FLUID: GANESH 14.2 MEASUREMENTS: 1. Biparietal Diameter: 88.2 cm; 32.6 wks 2. Head Circumference: 29.5 cm; 32.4 wks 3. Abdominal Circumference: 28.8 cm; 32.6 wks 4. Femur Length: 5.6 cm; 29.3 wks 5. Heart Rate: 133 beats per minute WEIGHT: EFW: 1832 grams (4 lbs 1 oz) -- 89 %. BIOPHYSICAL PROFILE: Motion: 2 Tone: 2 Breathin Amniotic Fluid: 2 Total score: 8/8 GESTATIONAL AGE: 1. Established GA: 30.1 wks 2. GA from [facility]: 32.0 wks ESTIMATED DATE OF DELIVERY: 1. Established MYLES: The 12/07/2020 2. [facility] US/US OB follow up IMPRESSION: 1. A single active fetus is in vertex presentation 2. Size equals dates, EFW corresponds to 89th percentile 3. Reassuring biophysical profile According to patient, she was diagnosed with gestational diabetes and started her GDM diet. Her fasting values are minimally elevated. The majority of her postprandial values are within normal limits. I informed the patient that the EFW corresponds to 89th percentile. If the EFW at term is greater than 4500 g, an elective section to prevent shoulder dystocia should be discussed. Thank you very much for this referral. A follow-up has been scheduled in 3 weeks. Total time 30 minutes. The time spent was devoted to counseling the patient about the disease and diagnosis, coordinating care including reviewing her records, pertinent lab data and studies, as well as discussing diagnostic evaluation and workup, plan therapeutic interventions and future disposition of care. This includes any additional research needed to obtain further information in formulating the plan of care of this patient. This note was generated with a voice recognition program. Please excuse any errors which may have been overlooked during my review of this note. Sometimes these errors may affect the content or meaning of a given sentence.
== END 2020-09-29 13:46 | disposition home or self-care (01) ==
LOC: HO.US 13:45
PROVIDERS: PCP Physician Assistant; Visit Provider Advanced Practice Midwife
DX: O24.419 Gestational diabetes mellitus in pregnancy, unspecified control (principal)
CPT/HCPCS: 76816

== ENCOUNTER → 2020-10-05 12:52 | Outpatient (BNVA) | payer OTHER, SELFPAY | PROVIDERS: PCP Physician Assistant; Visit Provider Obstetrics & Gynecology | DX: O24.410 Gestational diabetes mellitus in pregnancy, diet controlled (principal); Z3A.31 31 weeks gestation of pregnancy | CPT/HCPCS: 99212 ==

== ENCOUNTER → 2020-10-10 08:49 | Outpatient (BNVA) | payer OTHER, SELFPAY | PROVIDERS: PCP Physician Assistant; Visit Provider Advanced Practice Midwife | DX: O24.415 Gestational diabetes mellitus in pregnancy, controlled by oral hypoglycemic drugs (principal); Z3A.31 31 weeks gestation of pregnancy | CPT/HCPCS: 59025; 81003; 99212 ==

== ENCOUNTER 2020-10-13 13:39 | Outpatient (REF) | payer OTHER, SELFPAY ==
--- NOTE | ~2020-10-13 | US_ITS ---
EXAMINATION: US OBSTETRICAL (BIOPHYSICAL PROFILE) CLINICAL INFORMATION: 30-year-old at 32.1 weeks of gestation GDM on metformin COMPARISON: 09/29/2020 TECHNIQUE: Biophysical profile is performed over 30 minutes with assessment of breathing, gross body movement, tone, and qualitative amniotic fluid volume. FINDINGS: POSITION: Cephalic PLACENTA: Posterior without previa AMNIOTIC FLUID INDEX: 16.7 cm CARDIAC ACTIVITY: 146 beats per minute BIOPHYSICAL PROFILE: Motion: 2 Tone: 2 Breathin Amniotic Fluid: 2 The total biophysical score is 8/8 US/US OB biophysical profile IMPRESSION: 1. Single intrauterine gestation in 32.1 position. 2. Reassuring BPP and GANESH Patient continues to do well on metformin 500 mg by mouth twice a day. Informs me that her fasting glucose values are in the 80's. The postprandial values range btw 110-130's. She is to continue metformin ane fingerstick glucose monitoring, and follow-up in one week. Thank you for allowing me to participate in her care. Total time 30 minutes. The time spent was devoted to counseling the patient about the disease and diagnosis, coordinating care including reviewing her records, pertinent lab data and studies, as well as discussing diagnostic evaluation and workup, plan therapeutic interventions and future disposition of care. This includes any additional research needed to obtain further information in formulating the plan of care of this patient. This note was generated with a voice recognition program. Please excuse any errors which may have been overlooked during my review of this note. Sometimes these errors may affect the content or meaning of a given sentence.
== END 2020-10-13 13:40 | disposition home or self-care (01) ==
LOC: HO.US 13:39
PROVIDERS: Visit Provider Advanced Practice Midwife
DX: O24.419 Gestational diabetes mellitus in pregnancy, unspecified control (principal); Z3A.32 32 weeks gestation of pregnancy
CPT/HCPCS: 76819

== ENCOUNTER → 2020-10-17 09:43 | Outpatient (BNVA) | payer OTHER, SELFPAY | PROVIDERS: PCP Physician Assistant; Visit Provider Advanced Practice Midwife | DX: O24.419 Gestational diabetes mellitus in pregnancy, unspecified control (principal); Z3A.32 32 weeks gestation of pregnancy | CPT/HCPCS: 59025; 81003; 99212 ==

== ENCOUNTER 2020-10-20 10:25 | Outpatient (REF) | payer OTHER, SELFPAY ==
--- NOTE | ~2020-10-20 | US_ITS ---
EXAMINATION: OBSTETRICAL ULTRASOUND, Follow up HISTORY: A 30-year-old at the 33.1 weeks of gestation GDM on metformin Size greater than dates COMPARISON: 10/13/2020 TECHNIQUE: Real time transabdominal imaging with color and M-mode Doppler. PRESENTATION: Vertex PLACENTA LOCATION: Posterior without previa AMNIOTIC FLUID: GANESH 12.1 cm MEASUREMENTS: 1. Biparietal Diameter: 9.0 cm; 36.3 wks 2. Head Circumference: 32.5 cm; 36.6 wks 3. Abdominal Circumference: 31.6 cm; 35.4 wks 4. Femur Length: 6.7 cm; 34.4 wks 5. Heart Rate: 138 beats per minute WEIGHT: EFW: 2687 grams (5 lbs 15 oz) -- 96 %. BIOPHYSICAL PROFILE: Motion: 2 Tone: 2 Breathin Amniotic Fluid: 2 Total score: 8/8 GESTATIONAL AGE: 1. Established GA: 33.1 wks 2. GA from [facility]: 35.6 wks ESTIMATED DATE OF DELIVERY: 1. Established MYLES: 12/07/2020 2. MYLES from [facility]: 11/18/2020 US/US OB follow up IMPRESSION: 1. A single active fetus is in vertex presentation. 2. Size greater than dates, EFW corresponds to 96th percentile. 3. Reassuring biophysical profile. She is currently on metformin 500 mg by mouth twice a day. She reports normal glycemic control. She informs me that her blood pressure has been labile lately. Denies symptoms or signs of the preeclampsia. I reviewed the limitations of ultrasound and estimating weights. Even though the EFW corresponds to 96th percentile, this does not predict macrosomia at term. She is aware that she will need to be monitored every week with ultrasound for well-being and have her blood pressure monitored at least 2 times per week as an outpatient. Meanwhile she should monitor her blood pressure at home. Preeclampsia warnings given. I informed the patient that if she rules in for preeclampsia, delivery will be required. However if she only develops gestational hypertension, she can be expectantly management until approximately 37 weeks of gestation. Thank you very much for this referral. Total time 30 minutes. The time spent was devoted to counseling the patient about the disease and diagnosis, coordinating care including reviewing her records, pertinent lab data and studies, as well as discussing diagnostic evaluation and workup, plan therapeutic interventions and future disposition of care. This includes any additional research needed to obtain further information in formulating the plan of care of this patient. This note was generated with a voice recognition program. Please excuse any errors which may have been overlooked during my review of this note. Sometimes these errors may affect the content or meaning of a given sentence.
== END 2020-10-20 10:26 | disposition home or self-care (01) ==
LOC: HO.US 10:25
PROVIDERS: Visit Provider Advanced Practice Midwife
DX: O24.419 Gestational diabetes mellitus in pregnancy, unspecified control (principal)
CPT/HCPCS: 76816

== ENCOUNTER → 2020-10-24 08:50 | Outpatient (BNVA) | payer OTHER, SELFPAY | PROVIDERS: Visit Provider Advanced Practice Midwife ==

== ENCOUNTER → 2020-10-24 13:21 | Outpatient (BNVA) | payer OTHER, SELFPAY | PROVIDERS: Visit Provider Advanced Practice Midwife | DX: O24.419 Gestational diabetes mellitus in pregnancy, unspecified control (principal); O99.213 Obesity complicating pregnancy, third trimester; O99.013 Anemia complicating pregnancy, third trimester; D64.9 Anemia, unspecified; Z3A.33 33 weeks gestation of pregnancy; Z79.84 Long term (current) use of oral hypoglycemic drugs | CPT/HCPCS: 59025; 99212 ==

== ENCOUNTER 2021-04-18 08:11 | Emergency (ER) | payer OTHER, SELFPAY ==
[2021-04-18 08:25] VITALS: BP 133/90; PULSE 109; RESP 18; TEMP 36.6; O2SAT 98; BMI 35.2
[2021-04-18 09:27] LABS: Strep A Nucleic Acid Positive (Negative)
[2021-04-18 09:39] LABS: COVID-19 Test Positive (Negative); IDNOW Serial# 08D9AD1C
--- NOTE | 2021-04-18 10:10 | ED.URI ---
HPI - URI/Sore Throat General Chief Complaint: Upper Respiratory Symptoms Stated Complaint: SORE THROAT Time Seen by Provider: 04/18/21 09:05 Source: patient Mode of arrival: ambulatory History of Present Illness HPI Narrative: 30-year-old female s/p appendectomy presenting to the ED complaining of sore throat x5 days worse on right side. Reports difficulty/pain when swallowing. Also reports associated right-sided ear pain. Denies fever, chills, cough, CP/SOB, recent travel, COVID-19 exposure MD elicited complaint: sore throat Onset (ago): day(s) Related Data Previous Rx's Medication Instructions Recorded acetaminophen 325 mg tablet 650 mg PO Q6H PRN #10 tab 02/04/20 (Tylenol) prenat.vits,faiza,lpc-spjs-rpklr 1 tab PO DAILY #30 tab NS 04/06/20 ferrous sulfate 324 mg (65 mg 324 mg PO BID #60 tab 09/12/20 iron) tablet,delayed release blood-glucose meter (FreeStyle #1 ea 09/19/20 Smallwood Lite) metformin 500 mg tablet 500 mg PO . at bed time #30 tab 10/05/20 FreeStyle Lite Strips (blood sugar #100 strip NS 10/17/20 diagnostic) lancets 28 gauge (FreeStyle #100 ea 10/17/20 Lancets) amoxicillin 875 mg-potassium 1 tab PO Q12H 7 Days #14 tab 04/18/21 clavulanate 125 mg tablet (Augmentin) Allergies Allergy/AdvReac Type Severity Reaction Status Date / Time aspirin [ASA] Allergy Unknown HIVES Verified 10/24/20 08:58 Review of Systems Review of Systems: Constitutional: No Fever, No Chills ENT/Mouth: + Ear Pain, No Nasal Congestion, No Sinus Pain, No Hoarseness, + sore throat, No Rhinorrhea, + Swallowing Difficulty Cardiovascular: No Chest Pain, No SOB Respiratory: No Cough, No Sputum, No Wheezing Gastrointestinal: No Nausea, No Vomiting, No Diarrhea, No Constipation, No Abdominal pain Genitourinary No Dysuria, No Urinary Frequency Musculoskeletal: No joint pain, No Myalgias, No Joint Swelling Skin: No Skin Lesions, No rash Neuro: No Weakness, No Numbness Yes all other systems are reviewed and are negative [facility] Past Medical History Attestation statement: The following information was validated with the patient. Surgical History History of appendectomy Social History Social History Household Members: None Alcohol intake: never Patient Tobacco Use Status: Former Tobacco user Advance Directives: No Advance Directives Information Provided: Yes Sexual orientation: Straight/Heterosexual Physical Exam Vital Signs: Vital Signs: Last Vital Signs Temp 98 F 04/18/21 08:25 Pulse 109 H 04/18/21 08:25 Resp 18 04/18/21 08:25 BP 133/90 H 04/18/21 08:25 Pulse Ox 98 04/18/21 08:25 BMI result Body Mass Index 35.2 Const: General: cooperative and healthy appearing Orientation/consciousness: patient oriented x3 Limitations: no limitations HENMT: Other: + bilateral tonsillar erythema & swelling > R with bilateral exudates. Uvula midline. Head: Yes normal to inspection Ears: hearing grossly normal bilaterally and mastoids normal General nose exam: Normal external nose present Face and sinus: Yes normal facial exam Mouth: no audible dysphonia and no drooling Throat: Yes uvula midline and No peritonsillar mass Eyes: General: appearance normal, both eyes and all related structures EOM: EOMs intact bilaterally Neck: Neck: Yes normal visual inspection, Yes no meningeal signs, Yes trachea midline, Yes supple, No anterior neck swelling and Yes lymphadenopathy (+ right-sided submandibular lymphadenopathy) Resp: Effort & Inspection: normal respiratory effort Auscultation: clear to auscultation bilaterally, no rales, no rhonchi and no wheezes Cardio: Rate: regular rate Heart sounds: S1 normal heart sound present and S2 normal heart sound present GI: Inspection: Yes normal to inspection Palpation (GI): Soft to palpation, nontender, no guarding and not rigid Skin: Rashes: no rashes Wounds: no wounds Neuro: General: patient oriented x3 and no meningeal signs Gait exam (Neuro): Normal gait present Extrem: General: Yes normal to inspection Course Course Course Narrative: -patient given dose of p.o. Decadron and 1st dose of Augmentin in the ED, tolerated p.o. medications without difficulty -1010--COVID-19 positive. Rapid strep positive MDM - URI/Sore Throat MDM Narrative Medical decision making narrative: 30-year-old female s/p appendectomy presenting to the ED complaining of sore throat x5 days worse on right side. On exam mildly tachycardic likely from pain, physical exam as above consistent with strep pharyngitis, no evidence of MANAGER INTENSIVE CARE UNIT. Concern for viral syndrome/COVID-19 for strep pharyngitis. Plan: Rapid strep, COVID-19 testing, p.o. Decadron, p.o. Augmentin Differential Diagnosis Differential diagnosis: Likely upper respiratory infection, sinusitis, viral infection and pharyngitis Medical Records Attestation: I reviewed the patient's medical records. Lab Data Attestation: I reviewed the patient's lab results. Labs: Lab Results 04/18/21 04/18/21 Range/Units 09:12 09:12 COVID-19 (EVERARDO) Positive A (Negative) COVID-19 Clin Com See Note S. pyogenes GrpA ANDREA Positive A (Negative) Discharge Plan Discharge Clinical Impression: COVID-19, Strep pharyngitis Patient Disposition: Home, Self-Care Instructions: Strep Throat (ED), COVID-19 (Coronavirus Disease 2019) (ED) Additional Instructions: You have COVID-19 and strep throat Augmentin is antibiotic please take as prescribed. Monitor her temperatures at home. Your given a dose of oral steroid in the ED. Take Tylenol and Motrin for pain and swelling At this time you will be okay for discharge. Please self isolate for 10-14 days. Do not expose yourself to others. You may not go to work or school. Please continue to follow cold instructions and wash your hands frequently. You may take Tylenol / Motrin as directed on the bottle for pain or fever. If you have constant or persistent shortness of breath, fever unresolved with medications, chest pain, or your unable to eat or drink please return to the ED CDC Guidelines for home isolation: - Stay away from others - WEAR A MASK if you are sick AND STAY HOME - Cover your mouth and nose with a tissue when you cough or sneeze. Dispose of tissues in a lined trash can and wash your hands immediately with soap and water for at least 20 seconds. If soap and water are not available, clean hands with alcohol-based hand cardiothoracic icu rn that contains at least 60% alcohol. - Clean your hands often with soap and water for at least 20 seconds - Avoid touching your eyes, nose and mouth with unwashed hands - Do not share dishes, drinking glasses, cups, eating utensils, towels, or bedding with other people in your home. After using these items, wash them thoroughly with soap and water or put in the commercial artist lettering. - Clean high-touch surfaces in your isolation area ( sick room and bathroom) every day; let a caregiver clean and disinfect high-touch surfaces in other areas of the home. Clean the area or item with soap and water or another detergent if it is dirty. Then, use a household disinfectant. - Limit contact with pets and animals: If you must care for a pet, wash your hands before and after interacting with them) Prescriptions: New amoxicillin-pot clavulanate [Augmentin] 875-125 mg tablet 1 tab PO Q12H 7 Days Qty: 14 RF: 0 No Action ferrous sulfate 324 mg (65 mg iron) tablet,delayed release (DR/EC) 324 mg PO BID Qty: 60 RF: 4 (DME) blood-glucose meter [FreeStyle [place]wood Lite] Kit See Rx Instructions miscellaneous .MEDSUPPLY Qty: 1 RF: 0 (DME) FreeStyle Lite Strips Strip See Rx Instructions strip QID 30 Days Qty: 100 RF: 1 (DME) lancets [FreeStyle Lancets] 28 gauge misc See Rx Instructions .MEDSUPPLY Qty: 100 RF: 1 acetaminophen [Tylenol] 325 mg tablet 650 mg PO Q6H PRN (Reason: fever or pain) Qty: 10 RF: 0 prenat.vits,faiza,kpt-lfxz-abbyv Tablet 1 tab PO DAILY Qty: 30 RF: 0 metformin 500 mg tablet 500 mg PO . at bed time Qty: 30 RF: 2 Referrals: Physician,Unknown J [Primary Care Provider] - 2 days Stand Alone Forms: Work/School Release
[2021-04-18] MEDS: Amoxicillin/Potassium Clav 875 MG TABLET PO (11:29)
[2021-04-18] MEDS: Acetaminophen 325 MG TABLET 650 MG PO (11:29)
[2021-04-18] MEDS: dexAMETHasone sod phosphate 10 MG/ML VIAL IVPUSH (11:30)
== END 2021-04-18 11:36 | disposition home or self-care (01) ==
PROVIDERS: Emergency Provider Emergency Medicine
DX: U07.1 COVID-19 (principal); J02.0 Streptococcal pharyngitis
CPT/HCPCS: 87635; 87651; 99283; 99284; J1100

== ENCOUNTER → 2021-12-25 10:11 | Outpatient (BNVA) | payer OTHER, SELFPAY | PROVIDERS: Visit Provider Advanced Practice Midwife | DX: O09.299 Supervision of pregnancy with other poor reproductive or obstetric history, unspecified trimester (principal); Z86.32 Personal history of gestational diabetes | CPT/HCPCS: 99212 ==

== ENCOUNTER 2022-01-02 07:05 | Emergency (ER) | payer OTHER, SELFPAY ==
--- NOTE | ~2022-01-02 | US_ITS ---
EXAMINATION: US OBSTETRICAL ULTRASOUND CLINICAL INFORMATION: 8 weeks 5 days with lower abdominal pain COMPARISON: None. LMP: 10/01/2021. Gestational age by maternal dates is 9 weeks 0 days. Estimated date of delivery by maternal dates is 08/07/2021. TECHNIQUE: Transabdominal scanning was performed FINDINGS: There is a single intrauterine gestational sac with visible yolk sac, embryo/fetus, and cardiac activity. There is no significant subchorionic hemorrhage or hematoma. HR: 185 beats per minute. CRL (crown rump length): 2.54 cm (9 weeks 3 days +/- 4 days). MYLES (estimated date of delivery): 08/04/2021 +/- 4 days. MATERNAL ADNEXA: The right maternal ovary measures 3.6 x 2.0 x 2.2 cm. The left maternal ovary measures 5.0 x 3.3 x 3.1 cm. There is a 2.5 x 2.6 x 3.1 cm corpus luteum cyst. There is no significant maternal adnexal mass. No maternal pelvic ascites. US/US OB <= 14 weeks fetus IMPRESSION: 1. Single intrauterine gestation with ultrasound gestational age of 9 weeks 3 days +/- 4 days. 2. Estimated date of delivery is 08/04/2021 +/- 4 days. 3. No maternal adnexal mass or pelvic ascites.
[2022-01-02 07:17] VITALS: BP 125/70; PULSE 100; RESP 19; TEMP 36.7; O2SAT 98; BMI 37.3
--- NOTE | 2022-01-02 19:05 | ED.PREGNANCY ---
HPI - General Chief complaint: Nausea/Vomiting/Diarrhea Stated complaint: throwing up, cant keep anything down. Time Seen by Provider: 01/02/22 17:04 Source: patient Mode of arrival: ambulatory Limitations: no limitations History of Present Illness HPI Narrative: 31-year-old female with a past medical history of appendectomy who is [id number] who reports she is currently 8 weeks and 5 days with a last menstrual period of 10/01/2021 who reports her due date is 08/07/2021 had a telehealth visit with [facility] a few weeks ago presenting to the ER with complaints of nausea/vomiting/diarrhea with suprapubic abdominal pain since yesterday. She denies any fevers, chills, dizziness, headaches, nasal congestion/rhinorrhea, neck pain/stiffness, black or bloody emesis, chest pain or shortness of breath, radiation of the abdominal pain, recent travel or sick contacts, recent antibiotic use, others with similar symptoms, possible bad food exposure, dysuria, hematuria, abnormal vaginal discharge, abnormal vaginal bleeding, back pain, rashes or any other symptoms complaints or concerns at this time. MD Complaint: abdominal pain Onset (ago): day(s) (2) Pain Consistency: constant Location: other (Suprapubic abdomen) Severity: mild Quality: Cramping and Aching Relieving factors: none Associated symptoms: nausea, vomiting, abdominal pain and other (Diarrhea) Vaginal discharge: none Vaginal bleeding: none Date of Last Menstrual Period: 10/01/21 Patient : Yes Expected Date of Delivery: 08/07/22 Number of Weeks : 8 weeks and 5 days OB History - Current : no complications OB History - Previous Pregnancies: no complications care: followed by OB Related Data : 2 Para: 1 Total number of abortions (spontaneous and elective): 0 Previous Rx's Medication Instructions Recorded prenat.vits,faiza,oan-opjv-eaytc 1 tab PO DAILY #30 tabs 04/06/20 nitrofurantoin 100 mg PO BID 7 days #14 caps 01/02/22 monohydrate/macrocrystals 100 mg capsule (Macrobid) ondansetron 4 mg disintegrating 4 mg PO Q8H #14 tabs 01/02/22 tablet Allergies Allergy/AdvReac Type Severity Reaction Status Date / Time aspirin [ASA] Allergy Unknown HIVES Verified 12/25/21 10:41 Review of Systems Review of Systems: Constitutional : No Fever, No Chills ENT/Mouth : No sore throat, No Rhinorrhea Eyes: No Eye Pain, No Redness Cardiovascular : No Chest Pain, No SOB Respiratory : No Cough, No Sputum, No Wheezing Gastrointestinal : + nausea/vomiting/diarrhea and abdominal pain Genitourinary : No irregular bleeding, No Dysuria, No Urinary Frequency, No pelvic pain, No vaginal discharge, no hematuria Musculoskeletal : No Myalgias Skin : No rash Neuro : No Weakness, No Headache Psych : No Anxiety/Panic, No Depression Heme/Lymph: No bruising, No Lymphadenopathy Endocrine : No Polyuria, No Polydipsia Yes all other systems are reviewed and are negative [facility] Past Medical History Attestation statement: The following information was validated with the patient. Source: old records reviewed and nursing notes reviewed Surgical History History of appendectomy : 2 Para: 1 Total number of abortions (spontaneous and elective): 0 Date of Last Menstrual Period: 10/01/21 Social History Social History Household Members: None Alcohol intake: never Patient Tobacco Use Status: Former Tobacco user Advance Directives: No Advance Directives Information Provided: No Patient : Yes Sexual orientation: Straight/Heterosexual Physical Exam Vital Signs: Vital Signs: Last Vital Signs Temp 98.4 F 01/02/22 20:34 Pulse 72 01/02/22 21:47 Resp 18 01/02/22 21:47 BP 129/79 01/02/22 21:47 Pulse Ox 98 01/02/22 21:47 O2 Del Method 01/02/22 21:47 BMI result Body Mass Index 37.3 vital signs have been reviewed as normal and appeared to be correct. Blood pressure normal. Heart rate normal. Respiration rate normal. Temperature normal. Oxygen saturation normal. Appearance: Alert. Oriented X3. No acute distress. Head: Normal external exam. Normocephalic. Eyes: PERRLA. EOMI. Conjunctiva and sclera normal. Eyelids normal. ENT: Pharynx normal. Uvula midline. Moist mucous membranes. No trismus noted. No drooling noted. No muffled voice noted. Neck: Normal inspection. Neck supple. FROM. No adenopathy. No meningeal signs. CVS: Normal heart rate and rhythm. Heart sound normal. No murmurs noted. Pulses normal throughout. Respiratory: No respiratory distress. Painless inspiration. Breath sounds normal. No wheezes/rales/rhonchi noted. Chest nontender. No accessory muscle usage noted or decreased air movement noted. Abdomen: Soft and moderate TTP to suprapubic/RLQ area. Nondistended. No guarding. No rigidity. Bowel sounds normal in all 4 quadrants. No distention noted. No organomegaly noted. No visible injury noted. No rebound tenderness. Negative Rovsing sign. Negative obturator's sign. Negative psoas sign. Negative Brennan sign. Back: No CVA tenderness. Full range of motion noted. Skin: Skin warm and dry. Normal skin color. Normal skin turgor. No rashes/lesions/lacerations noted. Extremities: Extremities exhibit normal range of motion. Extremities nontender. Neuro: Oriented X 3. No motor deficit. No sensory deficit. Reflexes normal. Normal steady gait. CN's II-XII intact bilaterally? Course Course Course Narrative: 19:05pm - 31-year-old female with a past surgical history of appendectomy who is [id number] who reports she is currently 8 weeks and 5 days with a last menstrual period of 10/01/2021 who reports her due date is 08/07/2021 had a telehealth visit with [facility] a few weeks ago presenting to the ER with complaints of nausea/vomiting/diarrhea with suprapubic abdominal pain since yesterday. Plan: Will obtain labs, UA, UHCG, serum quant, Rh level, provide Zofran L of IV fluids obtain an OB ultrasound re-evaluate. Reevaluation(s) Reevaluation #1: - labs reviewed patient with leukocytosis of 11,000. Sodium 134. Carbon dioxide 14. Random glucose 119. Otherwise all other labs are within normal limits. - UA revealed protein along with blood and leukocytes therefore will treat for UTI. Patient does not have any CVA tenderness therefore not consistent with pyelonephritis. - positive urine test. - ultrasound reveals single intrauterine gestation with ultrasound gestational age of 9 weeks and 3 days. Estimated delivery date is 08/04/2021 +/-4 days. No adnexal mass or pelvic ascites. - patient is tolerating p.o. fluids as solids. Therefore at this time will DC home with antibiotics and symptomatic treatment instructions to follow-up with OBGYN and to return if she develops any vaginal bleeding, unable to stop tolerate p.o. fluids/solids or any worsening abdominal pain or any abnormal vaginal discharge or any other symptoms complaints or concerns at this time. Patient understands agrees with this plan. Time: 20:52 MDM - OB/Uterine Contractions Medical Records Attestation: I reviewed the patient's medical records. Lab Data Attestation: I reviewed the patient's lab results. Result diagrams: 01/02/22 19:59 01/02/22 19:59 Labs: Lab Results 01/02/22 01/02/22 01/02/22 Range/Units 19:59 19:59 19:59 WBC 11.7 H (4.8-10.8) X10*3/uL RBC 4.13 L (4.20-5.50) X10*6/uL Hgb 12.1 (12.0-16.0) g/dl Hct 34.6 L (37.0-47.0) % MCV 83.8 (80.0-98.0) fL MCH 29.3 (27.0-33.0) pg MCHC 35.0 (31.0-35.0) g/dl RDW 12.8 (11.0-16.0) % Plt Count 373 (160-400) X10*3/uL MPV 9.1 L (9.4-12.3) fL Immature Gran % (Auto) 0.4 (0.0-0.4) % Neut % (Auto) 86.0 H (45-73) % Lymph % (Auto) 9.3 L (20-40) % Davidson % (Auto) 3.9 (2-11) % Eos % (Auto) 0.1 (0-4) % Baso % (Auto) 0.3 (0-2) % Lymph # (Auto) 1.1 L (1.2-4.9) X10*3/uL Davidson # (Auto) 0.5 (0.1-1.2) X10*3/uL Eos # (Auto) 0.0 (0.0-0.4) X10*3/uL Baso # (Auto) 0.0 (0.0-0.2) X10*3/uL Abs Immat Gran (auto) 0.05 H (0.00-0.03) X10*3/uL Absolute Neuts (auto) 10.0 H (2.0-8.3) x10*3/uL Absolute Nucleated RBC 0.000 (0.0-0.012) X10*3/uL Nucleated RBC % (auto) 0.0 (0.0-0.2) /100WBC PT 12.5 (10.0-13.1) SEC INR 1.1 (0.9-1.1) Sodium 134 L (135-145) mmol/L Potassium 3.6 (3.3-5.1) mmol/L Chloride 104 (96-108) mmol/L Carbon Dioxide 14 L (22-29) mmol/L Anion Gap 20 (12-20) BUN 9 (9-16) mg/dL Creatinine 0.61 (0.5-1.4) mg/dL Estim Creat Clear Calc 131.8 Estimated GFR > 60 Random Glucose 119 H (60-115) mg/dL Calcium 8.6 (8.4-10.2) mg/dL Magnesium 1.8 (1.6-2.6) mg/dL Total Bilirubin 0.2 (0.0-1.0) mg/dL AST 27 D (5-31) U/L ALT 25 (0-31) U/L Alkaline Phosphatase 73 D (39-117) U/L Total Protein 7.3 (6.5-8.0) g/dL Albumin 4.0 (3.5-5.0) g/dL Lipase 15 (8-78) U/L Beta HCG, Quant mIU/mL Urine Color Urine Appearance Urine pH (5.0-9.0) Ur Specific [place] (1.005-1.025) Urine Protein (Neg-Trace) mg/dL Urine Glucose (UA) (Negative) mg/dL Urine Ketones (Negative) mg/dL Urine Blood (Negative) Urine Nitrite (Negative) Ur Leukocyte Esterase (Negative) Urine RBC (0-2) /HPF Urine WBC (0-5) /HPF Ur Squamous Epith Cells (0-2) /HPF Urine Bacteria (None Seen) Hyaline Casts (0-2) /LPF Urine Test (NEGATIVE) Blood Type 01/02/22 01/02/22 01/02/22 Range/Units 19:59 19:59 19:59 WBC (4.8-10.8) X10*3/uL RBC (4.20-5.50) X10*6/uL Hgb (12.0-16.0) g/dl Hct (37.0-47.0) % MCV (80.0-98.0) fL MCH (27.0-33.0) pg MCHC (31.0-35.0) g/dl RDW (11.0-16.0) % Plt Count (160-400) X10*3/uL MPV (9.4-12.3) fL Immature Gran % (Auto) (0.0-0.4) % Neut % (Auto) (45-73) % Lymph % (Auto) (20-40) % Davidson % (Auto) (2-11) % Eos % (Auto) (0-4) % Baso % (Auto) (0-2) % Lymph # (Auto) (1.2-4.9) X10*3/uL Davidson # (Auto) (0.1-1.2) X10*3/uL Eos # (Auto) (0.0-0.4) X10*3/uL Baso # (Auto) (0.0-0.2) X10*3/uL Abs Immat Gran (auto) (0.00-0.03) X10*3/uL Absolute Neuts (auto) (2.0-8.3) x10*3/uL Absolute Nucleated RBC (0.0-0.012) X10*3/uL Nucleated RBC % (auto) (0.0-0.2) /100WBC PT (10.0-13.1) SEC INR (0.9-1.1) Sodium (135-145) mmol/L Potassium (3.3-5.1) mmol/L Chloride (96-108) mmol/L Carbon Dioxide (22-29) mmol/L Anion Gap (12-20) BUN (9-16) mg/dL Creatinine (0.5-1.4) mg/dL Estim Creat Clear Calc Estimated GFR Random Glucose (60-115) mg/dL Calcium (8.4-10.2) mg/dL Magnesium (1.6-2.6) mg/dL Total Bilirubin (0.0-1.0) mg/dL AST (5-31) U/L ALT (0-31) U/L Alkaline Phosphatase (39-117) U/L Total Protein (6.5-8.0) g/dL Albumin (3.5-5.0) g/dL Lipase (8-78) U/L Beta HCG, Quant 738652 mIU/mL Urine Color Dark Yellow Urine Appearance Cloudy Urine pH 5.5 (5.0-9.0) Ur Specific [place] >= 1.030 H (1.005-1.025) Urine Protein 30 (1+) H (Neg-Trace) mg/dL Urine Glucose (UA) Negative (Negative) mg/dL Urine Ketones Trace (Negative) mg/dL Urine Blood Moderate (2+) H (Negative) Urine Nitrite Negative (Negative) Ur Leukocyte Esterase Moderate (2+) H (Negative) Urine RBC 11-20 H (0-2) /HPF Urine WBC 11-20 H (0-5) /HPF Ur Squamous Epith Cells >20 (0-2) /HPF Urine Bacteria 4+ (None Seen) Hyaline Casts 0-2 (0-2) /LPF Urine Test (NEGATIVE) Blood Type A Positive 01/02/22 Range/Units 19:59 WBC (4.8-10.8) X10*3/uL RBC (4.20-5.50) X10*6/uL Hgb (12.0-16.0) g/dl Hct (37.0-47.0) % MCV (80.0-98.0) fL MCH (27.0-33.0) pg MCHC (31.0-35.0) g/dl RDW (11.0-16.0) % Plt Count (160-400) X10*3/uL MPV (9.4-12.3) fL Immature Gran % (Auto) (0.0-0.4) % Neut % (Auto) (45-73) % Lymph % (Auto) (20-40) % Davidson % (Auto) (2-11) % Eos % (Auto) (0-4) % Baso % (Auto) (0-2) % Lymph # (Auto) (1.2-4.9) X10*3/uL Davidson # (Auto) (0.1-1.2) X10*3/uL Eos # (Auto) (0.0-0.4) X10*3/uL Baso # (Auto) (0.0-0.2) X10*3/uL Abs Immat Gran (auto) (0.00-0.03) X10*3/uL Absolute Neuts (auto) (2.0-8.3) x10*3/uL Absolute Nucleated RBC (0.0-0.012) X10*3/uL Nucleated RBC % (auto) (0.0-0.2) /100WBC PT (10.0-13.1) SEC INR (0.9-1.1) Sodium (135-145) mmol/L Potassium (3.3-5.1) mmol/L Chloride (96-108) mmol/L Carbon Dioxide (22-29) mmol/L Anion Gap (12-20) BUN (9-16) mg/dL Creatinine (0.5-1.4) mg/dL Estim Creat Clear Calc Estimated GFR Random Glucose (60-115) mg/dL Calcium (8.4-10.2) mg/dL Magnesium (1.6-2.6) mg/dL Total Bilirubin (0.0-1.0) mg/dL AST (5-31) U/L ALT (0-31) U/L Alkaline Phosphatase (39-117) U/L Total Protein (6.5-8.0) g/dL Albumin (3.5-5.0) g/dL Lipase (8-78) U/L Beta HCG, Quant mIU/mL Urine Color Urine Appearance Urine pH (5.0-9.0) Ur Specific [place] (1.005-1.025) Urine Protein (Neg-Trace) mg/dL Urine Glucose (UA) (Negative) mg/dL Urine Ketones (Negative) mg/dL Urine Blood (Negative) Urine Nitrite (Negative) Ur Leukocyte Esterase (Negative) Urine RBC (0-2) /HPF Urine WBC (0-5) /HPF Ur Squamous Epith Cells (0-2) /HPF Urine Bacteria (None Seen) Hyaline Casts (0-2) /LPF Urine Test POSITIVE H (NEGATIVE) Blood Type Imaging Data ultrasound: Attestation: I personally reviewed and interpreted this imaging study as follows: Radiologist's impression: FINDINGS: There is a single intrauterine gestational sac with visible yolk sac, embryo/fetus, and cardiac activity.? There is no significant subchorionic hemorrhage or hematoma. HR:? 185 beats per minute. CRL (crown rump length): ? 2.54 cm (9 weeks 3 days +/- 4 days). MYLES (estimated date of delivery):? 08/04/2021 +/- 4 days. ? MATERNAL ADNEXA: ? ? The right maternal ovary measures 3.6 x 2.0 x 2.2 cm. The left maternal ovary measures 5.0 x 3.3 x 3.1 cm.? There is a 2.5 x 2.6 x 3.1 cm corpus luteum cyst. There is no significant maternal adnexal mass.? No maternal pelvic ascites. US/US OB <= 14 weeks fetus IMPRESSION: 1. Single intrauterine gestation with ultrasound gestational age of? 9 weeks 3 days +/- 4 days. 2. Estimated date of delivery is 08/04/2021 +/- 4 days. 3. No maternal adnexal mass or pelvic ascites. Procedures Perimortem Number of Weeks : 8 weeks and 5 days Discharge Plan Discharge Clinical Impression: 9 weeks gestation of , Acute viral syndrome, UTI (urinary tract infection) Patient Disposition: Home, Self-Care Instructions: Viral Syndrome (ED), at 7 to 10 Weeks (ED) Prescriptions: New ondansetron 4 mg tablet,disintegrating 4 mg PO Q8H Qty: 14 0RF nitrofurantoin monohyd/m-cryst [Macrobid] 100 mg capsule 100 mg PO BID 7 Days Qty: 14 0RF Rx Instructions: must administer with a meal/food No Action prenat.vits,faiza,zdt-xafx-sreuv Tablet 1 tab PO DAILY Qty: 30 0RF Referrals: Physician,None [Primary Care Provider] - 2 days (your obgyn) Stand Alone Forms: Work/School Release
[2022-01-02] MEDS: ondansetron HCL 4 MG/2 ML VIAL IVPUSH (20:07)
[2022-01-02] MEDS: 0.9 % Sodium Chloride 1,000 ML 999 ML IVCONT (20:07)
[2022-01-02 20:09] LABS: MANUAL DIFF FLAG NO
[2022-01-02 20:11] LABS: Appearance Urine Cloudy; Basophils Percent Auto 0.3 % (0-2); Color Urine Dark Yellow; Eosinophils Percent Auto 0.1 % (0-4); Glucose Urine UA Negative (Negative); Hematocrit 34.6 % (37.0-47.0); Hemoglobin 12.1 g/dl (12.0-16.0); Imm Gran Abs Auto 0.05 X10*3/uL (0.00-0.03); Imm Gran Pct Auto 0.4 % (0.0-0.4); Leukocyte Esterase Urine Moderate (2+) (Negative); Lymphocytes Absolute Auto 1.1 X10*3/uL (1.2-4.9); Lymphocytes Percent Auto 9.3 % (20-40); Mean Corpuscular Hemoglobin 29.3 pg (27.0-33.0); Mean Corpuscular Volume 83.8 fL (80.0-98.0); Mean Platelet Volume 9.1 fL (9.4-12.3); Monocytes Absolute Auto 0.5 X10*3/uL (0.1-1.2); Monocytes Percent Auto 3.9 % (2-11); Nitrite Urine Negative (Negative); PH 5.5 (5.0-9.0); Platelet Count 373 X10*3/uL (160-400); Red Blood Count 4.13 X10*6/uL (4.20-5.50); Red Cell Distribution Width 12.8 % (11.0-16.0); Specific Gravity - Urine >= 1.030 (1.005-1.025); UMIC TRIGGER UACC YES; Urine Blood Moderate (2+) (Negative); Urine Ketones Trace mg/dL (Negative); Urine Protein 30 (1+) mg/dL (Neg-Trace); White Blood Count 11.7 X10*3/uL (4.8-10.8)
[2022-01-02 20:12] LABS: UPreg QC Valid YES; Urine Pregnancy POSITIVE (NEGATIVE)
[2022-01-02 20:15] LABS: INTERNATIONAL NORM RATIO 1.1 (0.9-1.1); Prothrombin Time 12.5 SEC (10.0-13.1)
[2022-01-02 20:16] LABS: Bacteria Urine 4+ (None Seen); Hyaline Casts Urine 0-2 /LPF (0-2); Squamous Epithelial Cell Urine >20 /HPF (0-2); UACC Culture Trigger YES
[2022-01-02 20:30] LABS: Alanine Aminotransferase 25 U/L (0-31); Alkaline Phosphatase 73 U/L (39-117); Anion Gap 20 (12-20); Aspartate Amino Transferase 27 U/L (5-31); Bilirubin Total 0.2 mg/dL (0.0-1.0); Blood Urea Nitrogen 9 mg/dL (9-16); Calcium 8.6 mg/dL (8.4-10.2); Carbon Dioxide 14 mmol/L (22-29); Chloride 104 mmol/L (96-108); Creatinine Clr Calc Pharmacy 131.8; Estimated Glomerular Filt Rate > 60; Glucose Random 119 mg/dL (60-115); Lipase 15 U/L (8-78); Magnesium 1.8 mg/dL (1.6-2.6); Potassium 3.6 mmol/L (3.3-5.1); Sodium 134 mmol/L (135-145); Total Protein 7.3 g/dL (6.5-8.0)
[2022-01-02 20:34] VITALS: BP 108/55; PULSE 93; RESP 18; TEMP 36.9; O2SAT 95
[2022-01-02 21:47] VITALS: BP 129/79; PULSE 72; RESP 18; O2SAT 98
== END 2022-01-02 22:15 | disposition home or self-care (01) ==
PROVIDERS: Physician Assistant Medical; Emergency Provider Emergency Medicine
DX: O98.511 Other viral diseases complicating pregnancy, first trimester (principal); B34.9 Viral infection, unspecified; O23.41 Unspecified infection of urinary tract in pregnancy, first trimester; N39.0 Urinary tract infection, site not specified; O21.9 Vomiting of pregnancy, unspecified; Z3A.09 9 weeks gestation of pregnancy
CPT/HCPCS: 36415; 76801; 80053; 81001; 81025; 83690; 83735; 84702; 85025; 85610; 86900; 86901; 87086; 96374; 99283; 99284; J2405

== ENCOUNTER 2022-01-04 12:51 | Outpatient (REF) | payer OTHER, SELFPAY | END 2022-01-04 12:52 | disposition home or self-care (01) | LOC: HO.US 12:51 | PROVIDERS: Visit Provider Advanced Practice Midwife | DX: Z13.89 Encounter for screening for other disorder (principal) ==

== ENCOUNTER 2022-01-21 08:14 | Emergency (ER) | payer OTHER, SELFPAY ==
[2022-01-21 08:20] VITALS: BP 129/68; PULSE 88; RESP 16; TEMP 36.6; O2SAT 100; BMI 35.3
[2022-01-21 08:39] LABS: Strep A Nucleic Acid Positive (Negative)
--- NOTE | 2022-01-21 08:50 | ED.URI ---
HPI - URI/Sore Throat General Chief Complaint: Upper Respiratory Symptoms Stated Complaint: Sore throat Time Seen by Provider: 01/21/22 08:31 Source: patient Mode of arrival: ambulatory History of Present Illness HPI Narrative: 31-year-old female at 12 weeks gestation presenting to the ED complaining of sore throat x3 days with painful swelling, mild ear pain and dry cough. Denies known fever, chills, chest pain, shortness of breath, abdominal pain, vaginal bleeding/discharge, recent travel MD elicited complaint: cough and sore throat Onset (ago): day(s) Related Data Previous Rx's Medication Instructions Recorded prenat.vits,faiza,[id number]-[id number]-tremu 1 tab PO DAILY #30 tabs 04/06/20 nitrofurantoin 100 mg PO BID 7 days #14 caps 01/02/22 monohydrate/macrocrystals 100 mg capsule (Macrobid) ondansetron 4 mg disintegrating 4 mg PO Q8H #14 tabs 01/02/22 tablet amoxicillin 500 mg capsule 500 mg PO BID 10 days #20 caps 01/21/22 Allergies Allergy/AdvReac Type Severity Reaction Status Date / Time aspirin [ASA] Allergy Unknown HIVES Verified 12/25/21 10:41 Review of Systems Review of Systems: Constitutional: No Fever, No Chills, No Fatigue, No Malaise ENT/Mouth: No Hearing loss, + Ear Pain, No Nasal Congestion, No Sinus Pain, No Hoarseness, + sore throat, No Rhinorrhea, No Swallowing Difficulty Eyes: No Eye Pain, No Swelling, No Redness, No Vision Changes Cardiovascular: No Chest Pain, No SOB, No Dyspnea on Exertion, No Orthopnea, No Edema, No Palpitations Respiratory: No Cough, No Sputum, No Wheezing, No Dyspnea Gastrointestinal: No Nausea, No Vomiting, No Diarrhea, No Constipation, No Abdominal pain Genitourinary: No irregular bleeding, No Dysuria, No Urinary Frequency, No Hematuria, No Flank Pain, No Urinary Flow Changes Musculoskeletal: No joint pain, No Myalgias, No Joint Swelling Skin: No Skin Lesions, No rash Neuro: No Weakness, No Loss of Consciousness, No Dizziness, No Headache Yes all other systems are reviewed and are negative Constitutional: Constitutional: Reports as per [facility] Past Medical History Attestation statement: The following information was validated with the patient. Surgical History History of appendectomy Social History Social History Household Members: None Alcohol intake: never Patient Tobacco Use Status: Former Tobacco user Advance Directives: No Advance Directives Information Provided: Yes Sexual orientation: Straight/Heterosexual Physical Exam Vital Signs: Vital Signs: Last Vital Signs Temp 98 F 01/21/22 08:20 Pulse 88 01/21/22 08:20 Resp 16 01/21/22 08:20 BP 129/68 01/21/22 08:20 Pulse Ox 100 01/21/22 08:20 O2 Del Method 01/21/22 08:20 BMI result Body Mass Index 35.3 Const: General: cooperative, healthy appearing and no acute distress Orientation/consciousness: patient oriented x3 Limitations: no limitations HEENT: Head: Yes normal to inspection and Yes atraumatic Ears: hearing grossly normal bilaterally, external ears normal, TM's normal bilaterally and mastoids normal General nose exam: Normal external nose present Face and sinus: Yes normal facial exam Throat: Yes uvula midline, Yes posterior oropharynx abnormal (+ posterior oropharyngeal erythma w/mild tonsillar swelling), No uvula laterally displaced and No uvular edema Eyes: General: appearance normal, both eyes and all related structures EOM: EOMs intact bilaterally Neck: Neck: Yes normal visual inspection, Yes no meningeal signs, Yes supple and No anterior neck swelling Resp: Effort & Inspection: normal respiratory effort, no respiratory distress and no stridor Auscultation: clear to auscultation bilaterally, no crackles, no rales, no rhonchi and no wheezes Cardio: Rate: regular rate Heart sounds: S1 normal heart sound present and S2 normal heart sound present GI: Inspection: Yes normal to inspection Palpation (GI): Soft to palpation, nontender, no guarding and not rigid : General: Yes no CVA tenderness Back/Spine/Pelvis: Back: no CVA tenderness Skin: Rashes: no rashes Wounds: no wounds Neuro: General: patient oriented x3, tone normal and no meningeal signs Gait exam (Neuro): Normal gait present Extrem: General: Yes normal to inspection Course Course Course Narrative: -[id number]--rapid strep positive. COVID-19 negative Results discussed with patient including worrisome signs and symptoms and strict return precautions, and when to return to the emergency department. They verbalized understanding and feel safe for discharge at this time. MDM - URI/Sore Throat MDM Narrative Medical decision making narrative: 31-year-old female at 12 weeks gestation presenting to the ED complaining of sore throat x3 days with painful swelling, mild ear pain and dry cough. On exam vital signs stable, NAD, nontoxic appearing, posterior oropharynx with erythema and mild tonsillar swelling, no exceed days, no muffled voice or uvular deviation. Concern for pharyngitis vs viral illness. No evidence of [employer]. Low suspicion for pneumonia/ACS. Denies related complaints Plan: COVID-19/rapid strep Differential Diagnosis Differential diagnosis: Likely upper respiratory infection, viral infection and pharyngitis Medical Records Attestation: I reviewed the patient's medical records. Lab Data Attestation: I reviewed the patient's lab results. Labs: Lab Results 01/21/22 Range/Units 08:24 S. pyogenes GrpA ANDREA Positive A (Negative) Discharge Plan Discharge Clinical Impression: Strep throat Patient Disposition: Home, Self-Care Instructions: Pharyngitis (ED) Additional Instructions: You have strep throat. you tested negative for COVID-19 Amoxicillin as an antibiotic please take as prescribed. Gargle with warm salt water. Please follow-up with her primary care doctor and OBGYN. If symptoms persist or worsen, your unable to eat or drink, develops high fever with return to emergency department Prescriptions: New amoxicillin 500 mg capsule 500 mg PO BID 10 Days Qty: 20 0RF No Action prenat.vits,faiza,wet-uzqh-bcxkh Tablet 1 tab PO DAILY Qty: 30 0RF ondansetron 4 mg tablet,disintegrating 4 mg PO Q8H Qty: 14 0RF nitrofurantoin monohyd/m-cryst [Macrobid] 100 mg capsule 100 mg PO BID 7 Days Qty: 14 0RF Rx Instructions: must administer with a meal/food Referrals: Po,Carson Gutierrez MD [Primary Care Provider] - 5 days
[2022-01-21 08:54] LABS: COVID-19 Test Negative (Negative)
== END 2022-01-21 09:13 | disposition home or self-care (01) ==
PROVIDERS: Emergency Provider Emergency Medicine; PCP Internal Medicine
DX: O98.811 Other maternal infectious and parasitic diseases complicating pregnancy, first trimester (principal); J02.0 Streptococcal pharyngitis; Z3A.12 12 weeks gestation of pregnancy; Z20.822 Contact with and (suspected) exposure to COVID-19
CPT/HCPCS: 36415; 87635; 87651; 99283